=== PATIENT | female | born 1970 | race Caucasian/White ===

== ENCOUNTER 2017-05-11 07:10 | Day surgery (SDC) | payer BC ==
--- NOTE | 2017-05-04 09:19 | HP ---
PREOPERATIVE HISTORY AND PHYSICAL: DATE OF SURGERY/ADMISSION: 05/11/17 [facility] DATE OF OFFICE VISIT/ENCOUNTER: 05/03/17 ATTENDING SURGEON: Luz Hendrix MD. * (DICTATED BY COLBY RICHARD) PROCEDURE: Left thumb trigger finger release. CHIEF COMPLAINT: Left thumb triggering. HISTORY OF PRESENT ILLNESS: This is a 46-year-old female who reports symptoms of pain, triggering, and decreased ability to fully flex the thumb that has had been going on for approximately 2 months. She says that moving and bending the thumb is very painful. She says that oftentimes, she cannot flex her thumb and if she can, it gets stuck in a flexed position and she has to use her other hand to extend the thumb. 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 She tried some conservative treatment including oral anti-inflammatories and a thumb brace; however, neither were helpful in relieving her symptoms. She would like to proceed with surgical intervention at this time. PAST MEDICAL HISTORY: 1. Asthma. 2. Overactive bladder. 3. GERD. PAST SURGICAL HISTORY: 1. Tubal ligation. 2. Skin cancer removal from nose. MEDICATIONS: 1. Asmanex HFA 100 mcg/act 2 puffs twice daily. 2. Cetirizine HCL 10 mg daily p.r.n. 3. Citalopram hydrobromide 20 mg 1-1/2 tabs daily. 4. Meloxicam 7.5 mg daily. 5. Prevacid 30 mg daily. 6. ProAir HFA 108 (90 base) mcg/act 2 puffs every 4 to 6 hours p.r.n. 7. VESIcare 10 mg daily. ALLERGIES: No known drug allergies. FAMILY MEDICAL HISTORY: Cancer and heart disease. 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 She is a current smoker, she smokes approximately a half a pack a day and has done so for the past 30 years. She denies recreational drug use. She does admit to alcohol use on occasion. REVIEW OF SYSTEMS: General: Negative for fevers, chills, or night sweats. No known anesthesia problems. HEENT: Negative for headache, lightheadedness, or syncopal episodes. Integumentary: Negative for abrasions, lesions, or open wounds. Cardiothoracic: Negative for hypertension, chest pain, palpitations, or edema. Pulmonary: Positive for mild shortness of breath with exertion related to asthma. Negative for chronic cough or COPD. GI: Positive for GERD. Negative for nausea, vomiting, diarrhea, constipation. : Positive for overactive bladder. Negative for history of UTIs or kidney problems. Musculoskeletal: Positive for current complaint. Negative for chronic or intermittent back pain, or history of fractures. Neurological: Negative for paresthesias, numbness, history of seizures, stroke, or epilepsy. Endocrine: Negative for diabetes or thyroid issues. Hematologic: Negative for easy bruising, anemia, excessive bleeding, or history of DVT. Infectious Disease: Positive for history of MRSA approximately 4 years ago. Negative for hepatitis C or HIV. PHYSICAL EXAMINATION GENERAL: A well-developed, well-nourished 46-year-old female in no acute distress. VITAL SIGNS: Height 5 feet 4 inches, weight 170 pounds, pulse rate 76, blood pressure 122/82. HEENT: Normocephalic, atraumatic. Pupils are equal, round, and reactive to light and accommodation. Extraocular movements are intact. NECK: Supple. No palpable lymph nodes. Throat is clear. PULMONARY: Lungs are clear to auscultation bilaterally. No wheezes, rales, or rhonchi. CARDIOVASCULAR: Regular rate and rhythm. S1 and S2. No murmurs, rubs, or gallops. No edema. ABDOMEN: Positive bowel sounds, soft, nontender. NEUROLOGIC: Alert and oriented x3. Cranial nerves II through XII are intact. Sensation is intact to light touch. MUSCULOSKELETAL: On inspection of the left hand and thumb, she has a very tender palpable nodule in the area of the A1 divine. She has full extension of the thumb, but is unable to flex the thumb secondary to pain. Neurovascular function is intact. IMAGING STUDIES: X-rays of the left thumb show no sign of acute injury or other osseous abnormalities. IMPRESSION: Left thumb trigger thumb. PLAN: The patient is scheduled to undergo a left thumb trigger finger release with Dr. Hendrix on 05/11/17. She will return to the office 10 to 14 days postop for followup and suture removal. A prescription for Ultracet was e-scribed to the patient's pharmacy for postoperative pain management. COLBY RICHARD [id number]/[facility] #: [id number] [facility]
[~2017-05-11 07:10] MED LIST: Buffered Lidocaine 0.9% SYRIN* 5 ML/SYR SYRINGE INTRADERM ONE
[2017-05-11] MEDS ORDERED: fentaNYL* 50 MCG/ML 2 ML VIAL (100 MCG VIAL) ONE (08:03)
[2017-05-11] MEDS ORDERED: Midazolam* 1 MG/ML 2 ML VIAL (2 MG) ONE ×2 (08:03→08:29)
[2017-05-11] MEDS ORDERED: Lidocaine 1% INJ* 10 MG/ML 30 ML SDV ONE (08:19)
[2017-05-11] MEDS ORDERED: Famotidine IV* 10 MG/ML 2 ML (20 mg) ONE (08:24)
[2017-05-11] MEDS ORDERED: Ketorolac INJ* 30 MG/ML 1 ML VIAL ONE (08:30)
[2017-05-11] MEDS ORDERED: Lidocaine 2% PF * 5 ML VIAL ONE (08:30)
[2017-05-11] MEDS ORDERED: Propofol* 10 MG/ML 20 ML BTL IV PUSH ONE (08:30)
[2017-05-11] MEDS ORDERED: Acetaminophen TAB* 325 MG PO PRN (08:43)
[2017-05-11] MEDS ORDERED: Ondansetron INJ* 2 MG/ML VIAL IV PRN (08:43)
[2017-05-11] MEDS ORDERED: PROCHLORPERAZINE INJ 5 MG/ML 2 ML VIAL IV PRN (08:43)
[2017-05-11 09:13] VITALS: BP 108/77
--- NOTE | 2017-05-12 04:54 | OP ---
DATE OF OPERATION: 05/11/17 [facility] DATE OF : 70 SURGEON: Dr. Hendrix. ACCOUNTING CONSULTANT: COLBY Tay ANESTHESIOLOGIST: Dr. Mason ANESTHESIA: Local MAC. PRE-OP DIAGNOSIS: Left trigger thumb. POST-OP DIAGNOSIS: Left trigger thumb. OPERATIVE PROCEDURE: Remove left trigger thumb. INDICATIONS: Brunilda is a 46-year-old female with triggering and locking of her left thumb. She presents for trigger thumb release. ESTIMATED BLOOD LOSS: Zero. TOURNIQUET TIME: 10 minutes. DESCRIPTION OF PROCEDURE: The patient was brought to the operating room, was given a sedation anesthetic and a local infiltration of 10 cc of 1% plain lidocaine overlying the A1 divine of the left thumb. Skin of her left hand and forearm was prepped and draped in the usual sterile fashion. The hand and forearm were exsanguinated and the tourniquet elevated to 250 mmHg. A transverse incision was made centered over the A1 divine of the thumb, dissected bluntly through the subcutaneous tissue. The digital neurovascular bundles were located and they were retracted by the surgical garment inspector, Lelo Donohue. The A1 divine was incised longitudinally completely releasing the FPL tendon, which was in good condition. The wound was irrigated and the skin edges reapproximated with 4-0 nylon suture. The wound was dressed with Xeroform , 4x4, Webril, and an Mani wrap. The patient tolerated the procedure well and was brought to the recovery room in good condition. [id number]/[facility] #: [id number] MTDD
== END 2017-05-11 09:30 | disposition home or self-care (01) ==
LOC: OREAST 07:10
PROVIDERS: ATTEND Orthopaedic Surgery
DX: M65.312 Trigger thumb, left thumb (principal); J45.909 Unspecified asthma, uncomplicated; N32.81 Overactive bladder; K21.9 Gastro-esophageal reflux disease without esophagitis; Z85.828 Personal history of other malignant neoplasm of skin; F17.210 Nicotine dependence, cigarettes, uncomplicated
CPT/HCPCS: J1885; J2001; J2250; J2704; J3010

== ENCOUNTER 2017-06-19 06:29 | Day surgery (SDC) | payer BC ==
--- NOTE | 2017-06-18 13:19 | HP ---
PREOPERATIVE HISTORY AND PHYSICAL: DATE OF ADMISSION/SURGERY: 06/19/17 DATE OF OFFICE VISIT/ENCOUNTER: 06/14/17 ATTENDING SURGEON: Luz Hendrix MD * (DICTATED BY COLBY RICHARD) PROCEDURE: Right wrist carpal tunnel release. CHIEF COMPLAINT: Numbness and tingling in right hand. HISTORY OF PRESENT ILLNESS: This is a 47-year-old female, who complains of numbness and tingling in her right hand. She says all of her fingers are involved, that has been going on for several months. It awakens her at night. Symptoms are progressively getting worse. In the past, she has been diagnosed with carpal tunnel that at one point got better, but now it has returned and it is worse than it had been before. She is interested in pursuing surgical intervention at this time in the form of a right wrist carpal tunnel release. PAST MEDICAL HISTORY: 1. Asthma. 2. Overactive bladder. 3. GERD. 4. Current ear infection. PAST SURGICAL HISTORY: 1. Tubal ligation. 2. Skin cancer removal from nose. 3. Left thumb trigger finger release. CURRENT MEDICATIONS: 1. Augmentin 875/125 mg twice a day. 2. Cetirizine HCl 10 mg daily. 3. Citalopram hydrobromide 20 mg 1-1/2 tabs daily. 4. Meloxicam 7.5 mg daily. 5. Prevacid 30 mg daily. 6. ProAir HFA 108 (90 base) mcg/act 2 puffs every 4 to 6 hours p.r.n. 7. VESIcare 10 mg daily. 8. Valacyclovir HCl 1 g q.8 hours for 1 week. ALLERGIES: No known drug allergies. FAMILY HISTORY: Cancer and heart disease. SOCIAL HISTORY: The patient is not currently working. She has recently been laid off by [employer]. She is a current smoker, she smokes approximately a half a pack a day and has done so for the past 30 years. She denies recreational drug use and does drink alcohol on occasion. REVIEW OF SYSTEMS: General: Negative for fevers, chills, or night sweats. No known anesthesia problems. HEENT: Positive for current ear infection. Negative for headache, lightheadedness, or syncopal episodes. Integumentary: Negative for abrasions, lesions, or open wounds. Cardiothoracic: Negative for hypertension, chest pain, palpitations, or edema. Pulmonary: Positive for mild shortness of breath with exertion related to asthma. Negative for chronic cough or COPD. GI: Positive for GERD. Negative for nausea, vomiting, diarrhea , constipation. : Positive for overactive bladder. Negative for history of UTIs or kidney problems. Musculoskeletal: Positive for current complaint. Negative for chronic or intermittent back pain or history of fractures. Neurological: Negative for history of seizure, stroke, or epilepsy. Endocrine: Negative for diabetes or thyroid issues. Hematologic: Negative for easy bruising , anemia, excessive bleeding, or history of DVT. Infectious Disease: Positive for history of MRSA approximately 4 years ago. Negative for hepatitis C or HIV. PHYSICAL EXAMINATION GENERAL: Well-developed, well-nourished, 47-year-old female, in no acute distress. VITAL SIGNS: Height 5 feet 4-1/2 inches, weight 154 pounds. Blood pressure 118 /64, pulse rate 76. HEENT: Normocephalic, atraumatic. Pupils are equal, round, and reactive to light and accommodation. Extraocular movements are intact. Throat is clear. NECK: Supple. No palpable lymph nodes. PULMONARY: Lungs are clear to auscultation bilaterally. No wheezes, rales, or rhonchi. CARDIOVASCULAR: Regular rate and rhythm. S1, S2. No murmurs, rubs, or gallops. No edema. ABDOMEN: Positive bowel sounds, soft, nontender. MUSCULOSKELETAL: On exam of her right hand, there is no thenar wasting, but she does have weakness with thumb abduction. Positive median nerve compression test. Good range of motion of her fingers in flexion and extension. Sensation is intact to light touch. NEUROLOGIC: Alert and oriented x3. Cranial nerves II through XII are intact. Sensation is intact to light touch. IMPRESSION: Right carpal tunnel syndrome. PLAN: The patient is scheduled to undergo a right wrist carpal tunnel release with Dr. Hendrix on 06/19/17. She will return to the office in 10 to 14 days for postop followup and suture removal. A prescription for Ultracet was e-scribed to the patient's pharmacy for postoperative pain management. COLBY RICHARD [id number]/[facility] #: [id number] [facility]PITAL[facility]y
[~2017-06-19 06:29] MED LIST changes: +Dexamethasone IV* 4 MG/ML 1 ML (4 MG) IV SLOW PU ONE; +Famotidine IV* 10 MG/ML 2 ML (20 mg) IV ONE
[2017-06-19] MEDS ORDERED: Buffered Lidocaine 0.9% SYRIN* 5 ML/SYR SYRINGE ONE (06:35)
[2017-06-19] MEDS ORDERED: Dexamethasone IV* 4 MG/ML 1 ML (4 MG) ONE (06:35)
[2017-06-19] MEDS ORDERED: Famotidine IV* 10 MG/ML 2 ML (20 mg) ONE (06:35)
[2017-06-19] MEDS ORDERED: Lidocaine 1% INJ* 10 MG/ML 30 ML SDV ONE (07:09)
[2017-06-19] MEDS ORDERED: Lidocaine 2% PF * 5 ML VIAL ONE (07:24)
[2017-06-19] MEDS ORDERED: Midazolam* 1 MG/ML 2 ML VIAL (2 MG) ONE (07:24)
[2017-06-19] MEDS ORDERED: Propofol* 10 MG/ML 20 ML BTL IV PUSH ONE (07:24)
[2017-06-19] MEDS ORDERED: fentaNYL* 50 MCG/ML 2 ML VIAL (100 MCG VIAL) ONE (07:24)
[2017-06-19] MEDS ORDERED: PROCHLORPERAZINE INJ 5 MG/ML 2 ML VIAL IV PRN (07:26)
[2017-06-19] MEDS ORDERED: fentaNYL* 50 MCG/ML 2 ML VIAL (100 MCG VIAL) IV PRN (07:26)
[2017-06-19] MEDS ORDERED: Ketorolac INJ* 30 MG/ML 1 ML VIAL IV PRN (07:26)
[2017-06-19] MEDS ORDERED: oxyCODONE/Acetamin 5/325 MG* TAB PO PRN (07:26)
[2017-06-19] MEDS ORDERED: HYDROcodone/ACETAMIN 5-325 MG* 1 TAB PO PRN (07:26)
[2017-06-19 08:11] VITALS: BP 109/62
--- NOTE | 2017-06-19 22:25 | OP ---
DATE OF OPERATION: 06/19/17 [facility] DATE OF : 70 SURGEON: Luz Hendrix MD FINISH INSPECTOR: COLBY Tay ANESTHESIOLOGIST: Gisselle Butler MD ANESTHESIA: Local MAC. PRE-OP DIAGNOSIS: Right carpal tunnel syndrome. POST-OP DIAGNOSIS: Right carpal tunnel syndrome. OPERATIVE PROCEDURE: Right carpal tunnel release. ESTIMATED BLOOD LOSS: Zero. TOURNIQUET TIME: 5 minutes. INDICATIONS: Brunilda is a 47-year-old female with numbness and tingling in the median nerve distribution of her right hand. She presents for right carpal tunnel release. DESCRIPTION OF PROCEDURE: The patient was brought to the operating room, was given a sedation anesthetic, and a local infiltration of 10 cc of 1% plain lidocaine in the palm of her right hand. The skin of her right hand and forearm was prepped and draped in the usual sterile fashion. The hand and forearm were exsanguinated and the tourniquet elevated to 250 mmHg. A longitudinal incision was made in the palm in line with the ring finger. We dissected through the subcutaneous tissue down to the transverse carpal ligament. The ligament was divided sharply with a knife and then more proximally with the scissors. The nerve was dissected free from the surrounding tissue and there was an area of moderate compression at the mid portion of the ligament. The wound was irrigated and the skin edges reapproximated with 4-0 nylon suture. The wound was dressed with Xeroform, 4x4 , Webril, and an Mani wrap. The patient tolerated the procedure well and was brought to the recovery room in good condition. [id number]/[facility] #: [id number] MTDD
== END 2017-06-19 08:32 | disposition home or self-care (01) ==
LOC: OREAST 06:29
PROVIDERS: ATTEND Orthopaedic Surgery
DX: G56.01 Carpal tunnel syndrome, right upper limb (principal); F17.210 Nicotine dependence, cigarettes, uncomplicated; J45.909 Unspecified asthma, uncomplicated
CPT/HCPCS: J1100; J2001; J2250; J2704; J3010

== ENCOUNTER 2017-08-14 06:54 | Day surgery (SDC) | payer BC ==
[~2017-08-14 06:54] MED LIST changes: -Dexamethasone IV* 4 MG/ML 1 ML (4 MG) IV SLOW PU ONE; -Famotidine IV* 10 MG/ML 2 ML (20 mg) IV ONE
[2017-08-14] MEDS ORDERED: Lidocaine 1% INJ* 10 MG/ML 30 ML SDV ONE (08:08)
[2017-08-14] MEDS ORDERED: Lidocaine 2% PF * 5 ML VIAL ONE (08:15)
[2017-08-14] MEDS ORDERED: fentaNYL* 50 MCG/ML 2 ML VIAL (100 MCG VIAL) ONE (08:15)
[2017-08-14] MEDS ORDERED: Propofol* 10 MG/ML 20 ML BTL IV PUSH ONE (08:15)
[2017-08-14 08:48] VITALS: BP 110/66
--- NOTE | 2017-08-15 01:08 | OP ---
DATE OF OPERATION: 08/14/17 [facility] DATE OF : 70 SURGEON: Luz Hendrix MD EGG TESTER: COLBY Tay ANESTHESIA: Local MAC. PRE-OP DIAGNOSIS: Left carpal tunnel syndrome. POST-OP DIAGNOSIS: Left carpal tunnel syndrome. OPERATIVE PROCEDURE: Left carpal tunnel release. INDICATIONS: Brunilda is a 47-year-old female with numbness and tingling in the median nerve distribution of her left hand. She presents for left carpal tunnel release. ESTIMATED BLOOD LOSS: Zero. TOURNIQUET TIME: 5 minutes. DESCRIPTION OF PROCEDURE: The patient was brought to the operating room, was given a sedation anesthetic, and a local infiltration of 10 cc of 1% plain lidocaine in the palm of her left hand. The skin of her left hand and forearm was prepped and draped in the usual sterile fashion. The hand and forearm were exsanguinated and the tourniquet elevated to 250 mmHg. A longitudinal incision was made in the palm in line with the ring finger. We dissected through the subcutaneous tissue down to the transverse carpal ligament. The ligament was divided sharply with a knife and then more proximally with the scissors. The nerve was dissected free from the surrounding tissue and there was an area of moderate compression at the mid portion of the ligament. The wound was irrigated and the skin edges reapproximated with 4-0 nylon suture. The wound was dressed with Xeroform, 4x4's, Webril, and an Mani wrap. The patient tolerated the procedure well and was brought to the recovery room in good condition. [id number]/[facility] #: [id number] SWATI
== END 2017-08-14 09:10 | disposition home or self-care (01) ==
LOC: OREAST 06:54
PROVIDERS: ATTEND Orthopaedic Surgery
DX: G56.02 Carpal tunnel syndrome, left upper limb (principal); J45.909 Unspecified asthma, uncomplicated; K21.9 Gastro-esophageal reflux disease without esophagitis; N32.81 Overactive bladder; Z85.828 Personal history of other malignant neoplasm of skin; F17.210 Nicotine dependence, cigarettes, uncomplicated
CPT/HCPCS: J2704; J3010

== ENCOUNTER 2017-10-09 09:08 | Day surgery (SDC) | payer BC ==
--- NOTE | 2017-10-04 12:57 | HP ---
PREOPERATIVE HISTORY AND PHYSICAL: DATE OF SURGERY/ADMISSION: 10/09/17. DATE OF OFFICE VISIT/ENCOUNTER: 10/03/17. ATTENDING SURGEON: Luz Hendrix MD.* (DICTATED BY COLBY RICHARD) PROCEDURE: Right thumb trigger finger release. CHIEF COMPLAINT: Right thumb triggering. HISTORY OF PRESENT ILLNESS: This is a 47-year-old female who reports symptoms of pain, triggering, and decreased ability to fully flex her right thumb. This has been ongoing for several months now. She states moving and bending the thumb is very painful. She states oftentimes she cannot fully flex her thumb and if she can, it gets stuck in a flexed position and she has to use the other hand to extend this thumb. It is very painful. She denies injury. 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 She unfortunately has been laid off from that job, but the trigger finger persists. She has had some conservative treatment including oral antiinflammatories and a thumb brace. However, neither was helpful in relieving her symptoms. She is interested in proceeding with surgical intervention at this time. She recently underwent a left thumb trigger finger release and has done very well with that. PAST MEDICAL HISTORY: 1. Asthma. 2. Overactive bladder. 3. GERD. PAST SURGICAL HISTORY: 1. Tubal ligation. 2. Skin cancer removal from nose. 3. Left carpal tunnel release. 4. Left thumb trigger finger release. CURRENT MEDICATIONS: 1. Chantix as directed. 2. Citalopram hydrobromide 40 mg daily. 3. Prevacid 30 mg daily. 4. Pro-Air HFA 108/90 base micrograms/ACT 2 puffs q. 4 to 6 hours p.r.n. 5. VESIcare 10 mg daily. ALLERGIES: No known drug allergies. FAMILY MEDICAL HISTORY: Cancer and heart disease. SOCIAL HISTORY: Patient is currently laid off. 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 She is a current smoker. She smokes approximately half a pack a day and has been so for the past 30 years. She denies recreational drug use. She does drink alcohol on occasions. REVIEW OF SYSTEMS: General: Negative for fevers, chills, or night sweats. No known anesthesia problems. HEENT: Negative for headache, lightheadedness or syncopal episodes. Integumentary: Negative for abrasions, lesions or open wounds. Cardiothoracic: Negative for hypertension, chest pain, palpitations or edema. Pulmonary: Positive for mild shortness of breath with exertion related to asthma. Negative for chronic cough or COPD. GI: Positive for GERD. Negative for nausea, vomiting, diarrhea or constipation. : Positive for overactive bladder. Negative for history of UTI or kidney problems. Musculoskeletal: Positive for current complaint. Negative for chronic or intermittent back pain or history of fractures. Neurologic: Negative for paresthesia or numbness, history of seizure, stroke or epilepsy. Endocrine: Negative for diabetes or thyroid issues. Hematologic: Negative for easy bruising, anemia, excessive bleeding. No history of DVT. Infectious Disease: Positive for history of MRSA approximately 4 years ago, negative for hepatitis C or HIV. PHYSICAL EXAMINATION GENERAL: Well-developed, well-nourished 47-year-old female in no acute distress. VITAL SIGNS: Height 5 feet 4-1/4 inches, weight 163 pounds, pulse rate 76, blood pressure 110/62. HEENT: Normocephalic, atraumatic. Pupils are equal, round and reactive to light and accommodation. Extraocular movements are intact. Throat is clear. NECK: Supple. No palpable lymph nodes. LUNGS: Clear to auscultation bilaterally. No wheezes, rales or rhonchi. HEART: Regular rate and rhythm. S1, S2. No murmurs, rubs or gallops. No edema. ABDOMEN: Positive bowel sounds, soft, nontender. NEUROLOGIC: Alert and oriented x3. Cranial nerves II through XII are intact. Sensation is intact to light touch. MUSCULOSKELETAL: On inspection of her right hand and thumb, she has tenderness to palpation at the A1 divine. She has full extension of the thumb, but she is unable to flex this thumb secondary to pain. Neurovascular function is intact. IMPRESSION: Right thumb trigger thumb. PLAN: Patient is scheduled to undergo a right thumb trigger finger release with Dr. Hendrix on 10/09/17. She will return to the office 10 days postop for follow up and suture removal. A prescription for Ultracet was e-scribed to the patient's pharmacy for postoperative pain management. COLBY RICHARD [id number]/[facility] #: [id number] SWATI
[~2017-10-09 09:08] MED LIST changes: +Famotidine IV* 10 MG/ML 2 ML (20 mg) IV ONE; +Lidocaine 1% INJ* 10 MG/ML 30 ML SDV ONE; +Naloxone* 0.4 MG/ML 1 ML VIAL IV PRN; +Ondansetron INJ* 2 MG/ML VIAL IV PRN; +fentaNYL* 50 MCG/ML 2 ML VIAL (100 MCG VIAL) IV PRN; +oxyCODONE/Acetamin 5/325 MG* TAB PO PRN
[2017-10-09] MEDS ORDERED: Famotidine IV* 10 MG/ML 2 ML (20 mg) ONE (09:14)
[2017-10-09] MEDS ORDERED: Lidocaine 2% PF * 5 ML VIAL ONE (09:58)
[2017-10-09] MEDS ORDERED: Ondansetron INJ* 2 MG/ML VIAL ONE (09:58)
[2017-10-09] MEDS ORDERED: fentaNYL* 50 MCG/ML 2 ML VIAL (100 MCG VIAL) ONE (09:58)
[2017-10-09] MEDS ORDERED: Propofol* 10 MG/ML 20 ML BTL IV PUSH ONE (09:58)
[2017-10-09] MEDS ORDERED: Midazolam* 1 MG/ML 2 ML VIAL (2 MG) ONE (09:58)
[2017-10-09] MEDS ORDERED: Dexamethasone IV* 4 MG/ML 1 ML (4 MG) ONE (09:58)
[2017-10-09] MEDS ORDERED: Ketorolac INJ* 30 MG/ML 1 ML VIAL ONE (09:58)
[2017-10-09 11:22] VITALS: BP 124/76
--- NOTE | 2017-10-10 00:53 | OP ---
DATE OF OPERATION: 10/09/17 [facility] DATE OF : 70 SURGEON: Luz Hendrix MD ANIMAL ANATOMY TEACHER: COLBY Acevedo ANESTHESIOLOGIST: Maikel Pruett MD ANESTHESIA: Local MAC. PRE-OP DIAGNOSIS: Right trigger thumb. POST-OP DIAGNOSIS: Right trigger thumb. OPERATIVE PROCEDURE: Right trigger thumb release. ESTIMATED BLOOD LOSS: Zero. TOURNIQUET TIME: About 5 minutes. INDICATIONS FOR PROCEDURE: Brunilda is a 47-year-old female with clicking and locking of her right thumb. She has failed conservative treatment and presents for trigger thumb release. DESCRIPTION OF PROCEDURE: The patient was brought to the operating room, was given a sedation anesthetic and a digital block with 10 cc of 1% plain lidocaine. Skin of her right hand and forearm was prepped and draped in the usual sterile fashion. The hand and forearm were exsanguinated and tourniquet elevated to 250 mmHg. A transverse incision was made, centered over the A1 divine of the right thumb. We dissected bluntly through the subcutaneous tissue. The digital neurovascular bundles were retracted by the operating room surgical technician, Kimberley Beck. The A1 divine was incised longitudinally, completely releasing the flexor tendon, which was in good condition. The wound was irrigated and the skin edges reapproximated with 4-0 nylon suture. The wound was dressed with Xeroform, 4x4, Webril, and an Mani wrap. The patient tolerated the procedure well and was brought to the recovery room in good condition. [id number]/[facility] #: [id number] MTDD
== END 2017-10-09 11:40 | disposition home or self-care (01) ==
LOC: OREAST 09:08
PROVIDERS: ATTEND Orthopaedic Surgery
DX: M65.311 Trigger thumb, right thumb (principal); J45.909 Unspecified asthma, uncomplicated; K21.9 Gastro-esophageal reflux disease without esophagitis; N32.81 Overactive bladder; Z72.0 Tobacco use; F41.9 Anxiety disorder, unspecified
CPT/HCPCS: J1100; J1885; J2250; J2405; J2704; J3010

== ENCOUNTER 2017-10-21 12:10 | Emergency (ER) | payer BC ==
--- OUTSIDE RECORDS SUMMARY | 2017-10-21 12:30 | XMS REPORT ---
:1970 External Reference #:[id number] Author Organization [facility] [employer] Address [address] [address] Phone [phone] Care Team Providers Name Role Phone Ethan Morris MD Primary Care Physician Unavailable Payers Type Date Identification Numbers Payment Provider Subscriber Commercial Effective: Policy Number: [id number] BS Facets Brina Rankin 2015 PayID: [id number] [address] [address] APURVA Joseph [address] Medigap Part B Effective: 2014 Policy Number: BS Facets Brina Rankin [id number] Expires: 2015 PayID: [id number] [address] [address] APURVA Joseph [address] Medigap Part B Effective: 2010 Policy Number: Local 589 InsDominick Rankin [id number] Fund Expires: 2011 [address] [place] [address] Workers Compensation Onset: 2015 Policy Number: Armando Rankin [id number] PayID: [id number] [address] [address] [place] [address] Problems Date Description Provider Status Onset: 10/08/2017 Human leukocyte antigen B27 test Jeffery Coates positive KWADWO Sanchez Onset: 09/05/2011 Tobacco user Mary Velasco M.D. Active Onset: 02/28/2017 Cough variant asthma Jeffery Coates M.D.FACErin Onset: 02/28/2017 Increased frequency of urination Jeffery Coates M.D., FACP Onset: 02/28/2017 Endogenous depression Jeffery Coates M.D.,FACP Onset: 02/28/2017 Gastroesophageal reflux disease Jeffery Coates M.D.,FACP Onset: 06/14/2017 Carpal tunnel syndrome of right Luz Hendrix M.D. 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 Daily Caffeine Consumes on average 2 cups of regular coffee per day Exercise Type/Frequency Does not exercise Currently Active Patient is currently sexually active Sexual Hx text LMP: 08/22/15 Allergies, Adverse Reactions, Alerts Date Description Reaction Status Severity Comments 08/22/2011 NKDA active Medications Medication Date Status Form Strength Qnty SIG Indications Ordering Provider Hydrocodone-Aceta 10/03/ Active Tablets 5-325mg 15tab 1 tab by Luz walker 2017 s mouth Hendrix, every 4- 6 M.D. hours as needed pain Chantix Starting 08/20/ Active Tablets 0.5mg X 55tab as Ethan Month 2016 11 & s directed DDominick Morris, 1 mg X 42 M.D.,FACP Citalopram 08/20/ Active Tablets 40mg 90tab 1 by mouth N94.3 Ethan Hydrobromide 2017 s every day Shari Morris M.D.,FACP Valacyclovir HCL 06/12/ Active Tablets 1gm 21tab by mouth Ethan 2017 s every 8 D. Alexandra, hours for M.D.,FACP 1 week Proair HFA 08/03/ Active Aerosol 108(90Bas 1unit 2 puffs R06.02 Parth 2014 e) s every 4-6 Italian, [employer] mcg/Act hours as needed Prevacid / Active Capsules 30mg 1 by mouth Unknown 0000 DR every day Vesicare / Active Tablets 10mg 1 by mouth Unknown 0000 every day Hydrocodone-Aceta 08/14/ Hx Tablets 5-325mg 15tab 1 tab by Luz walker 2016 - s mouth Hendrix, 08/20/ every 4- 6 M.D. 2017 hours as needed pain Ultracet 08/13/ Hx Tablets 37.5-325m 15tab 1 tab by Luz 2017 - g s mouth Hendrix, 08/20/ every 4-6 M.D. 2017 hours as needed pain Hydrocodone-Aceta 06/19/ Hx Tablets 5-325mg 15tab 1 tab by Luz walker 2016 mouth Hendrix, 07/18/ every 4- 6 M.D. 2017 hours as needed pain Tramadol 06/14/ Hx Tablets 37.5-325m 20tab 1 tab by Luz Nieves/Mani 2016 - g s mouth Hendrix, taminophen 07/18/ every 4-6 M.D. 2017 hours as needed pain Augmentin 06/12/ Hx Tablets 875-125mg 20tab by mouth Ethan 2016 - s twice a D. Madison, 06/22/ day M.D.,FACP 2017 Tramadol 05/03/ Hx Tablets 37.5-325m 30tab 1 tab by Ethan Nieves/Mani 2016 - g s mouth D. Madison, taminophen 07/18/ every 4-6 M.D.,FACP 2017 hours as needed pain Meloxicam 04/12/ Hx Tablets 7.5mg 30tab take 1 Luz Martin - pill a day Hendrix, 06/12/ by mouth M.D. 2016 Cetirizine HCL 02/28/ Hx Tablets 10mg 30tab 1 by mouth Ethan 2016 - s every day D. Madison, 08/20/ as needed M.D.,FACP 2017 Asmanex HFA 02/28/ Hx Aerosol 100mcg/Ac 39gm 2 puff Ethan 2016 - t twice a D. Madison, 06/12/ day M.D.,FACP 2016 (Samples) Amoxicillin/Clavu 09/20/ Hx Tablets 875-125mg 20tab 1 tablet J01.90 Parth lanate Potassium 2016 - s by mouth VINEET Anderson 09/30/ twice a 2017 day x's 10 days Citalopram 02/20/ Hx Tablets 20mg 45tab 1 1/2 tab N94.3 Ethan Hydrobromide 2015 - s by mouth Shari Morris, 08/20/ every day M.D.,FACP 2017 Chantix Starting 02/20/ Hx Tablets 0.5mg X 1tabs as Z71.6 Parth Forde Vinh 2015 - & directed VINEET Anderson 09/20/ 1 mg X 42 continue 2017 for 12 weeks Azithromycin 10/05/ Hx Tablets 250mg 6tabs 2 tabs by J01.90 Parth 2016 - mouth on VINEET Anderson 10/10/ day 1; 1 2015 tab by mouth every day on days 2-5 Citalopram 08/31/ Hx Tablets 20mg 30tab 1 tab by N94.3 Parth Modibromide 2014 - mouth VINEET Anderson 02/20/ every day 2016 Nicotine 08/03/ Hx Patches 14mg/24HR 30uni apply 1 F17.210 Petar 2014 - 24HR ts patch per Brenner, 10/05/ day Going M.D. 2015 back next week Naproxen 07/22/ Hx Tablets 375mg 45tab 1 tablet M54.2 Petar 2014 - s by mouth Brenner, 10/05/ twicw a M.D. 2015 day with foods Cyclobenzaprine 07/22/ Hx Tablets 5mg 60tab 1 tablet M54.2 Petar HCL 2014 - s by mouth Brenner, 10/05/ three M.D. 2016 times a day as needed Wellbutrin 08/22/ Hx Tablets 100mg 60tab 1 tab 305.1 Mray 2010 - s daily Velasco, 07/21/ M.D. 2015 Proair HFA 08/22/ Hx Aerosol 108(90Bas 1unit 2 puffs 786.05 Mary 2010 - e) mcg/ac s every 4-6 Velasco, 08/03/ hrs as M.D. 2014 needed Ibuprofen 00// Hx Tablets 200mg 90tab 2 tablet Unknown 0000 - s prn for 07/22/ headaches 2015 Immunizations CPT Code Status Date Vaccine Lot # [id number] Given 08/20/2017 Pneumonia Vaccine [id number] Given 08/20/2017 Influenza Virus Vaccine, Quadrivalent, Split, [id number] Preservative Free [id number] Given 08/24/2015 Pneumococcal Conjugate Vaccine 13 Valent For [id number] Intramuscular Use 01919 Given 08/03/2015 Influenza Virus Vaccine, Quadrivalent, Split, [id number] Preservative Free Vital Signs Date Vital Result Comment 10/18/2017 Height 64.25 inches 5'4.25" Weight 163.00 lb Heart Rate 74 /min BP Systolic 113 mmHg BP Diastolic 77 mmHg Body Temperature 97.0 F BMI (Body Mass Index) 27.8 kg/m2 10/03/2017 Heart Rate 75 /min BP Systolic Sitting 112 mmHg BP Diastolic Sitting 78 mmHg Body Temperature 98.1 F 09/12/2017 Height 64.25 inches 5'4.25" Weight 163.00 lb Heart Rate 76 /min Respiratory Rate 14 /min Body Temperature 98.3 F Pain Level 2 BMI (Body Mass Index) 27.8 kg/m2 08/23/2017 Height 64.25 inches 5'4.25" Weight 163.00 lb BP Systolic 110 mmHg BP Diastolic 62 mmHg Body Temperature 96.7 F Pain Level 0 BMI (Body Mass Index) 27.8 kg/m2 08/20/2017 Height 64.25 inches 5'4.25" Weight 163.00 lb Heart Rate 73 /min BP Systolic Sitting 118 mmHg BP Diastolic Sitting 72 mmHg Body Temperature 98.4 F O2 % BldC Oximetry 97 % BMI (Body Mass Index) 27.8 kg/m2 08/01/2017 Height 64.5 inches 5'4.50" Weight 154.00 lb Heart Rate 70 /min BP Systolic 119 mmHg BP Diastolic 78 mmHg Body Temperature 97.7 F BMI (Body Mass Index) 26.0 kg/m2 07/02/2017 Height 64.5 inches 5'4.50" Weight 154.00 lb Heart Rate 76 /min BP Systolic 118 mmHg BP Diastolic 72 mmHg Body Temperature 96.9 F Pain Level 5 BMI (Body Mass Index) 26.0 kg/m2 06/20/2017 Height 64.5 inches 5'4.50" Weight 154.00 lb Body Temperature 97.4 F BMI (Body Mass Index) 26.0 kg/m2 06/14/2017 Height 64.5 inches 5'4.50" Weight 154.00 lb BP Systolic 118 mmHg BP Diastolic 64 mmHg Respiratory Rate 18 /min Pain Level 0 BMI (Body Mass Index) 26.0 kg/m2 06/12/2017 Weight 155.00 lb Heart Rate 68 /min BP Systolic Sitting 114 mmHg BP Diastolic Sitting 70 mmHg Body Temperature 98.3 F O2 % BldC Oximetry 98 % 05/22/2017 Height 64.5 inches 5'4.50" Weight 154.00 lb Heart Rate 76 /min BP Systolic 121 mmHg BP Diastolic 80 mmHg Body Temperature 96.7 F Pain Level 9 BMI (Body Mass Index) 26.0 kg/m2 05/03/2017 Height 64 inches 5'4" Weight 170.00 lb Heart Rate 76 /min BP Systolic 122 mmHg BP Diastolic 82 mmHg Respiratory Rate 17 /min Body Temperature 98.1 F Pain Level 4 BMI (Body Mass Index) 29.2 kg/m2 04/12/2017 Height 64 inches 5'4" Weight 170.00 lb Heart Rate 78 /min BP Systolic 130 mmHg BP Diastolic 72 mmHg Respiratory Rate 16 /min Body Temperature 97.6 F Pain Level 7 BMI (Body Mass Index) 29.2 kg/m2 02/28/2017 Weight 158.12 lb Heart Rate 69 /min BP Systolic 128 mmHg BP Diastolic 64 mmHg Body Temperature 98.4 F O2 % BldC Oximetry 99 % 09/20/2016 Weight 171.38 lb Heart Rate 80 /min BP Systolic Sitting 120 mmHg BP Diastolic Sitting 74 mmHg Body Temperature 99.0 F O2 % BldC Oximetry 98 % 02/21/2016 Height 65 inches 5'5" Weight 160.00 lb Heart Rate 78 /min BP Systolic Sitting 104 mmHg BP Diastolic Sitting 60 mmHg Body Temperature 98.2 F O2 % BldC Oximetry 98 % BMI (Body Mass Index) 26.6 kg/m2 10/25/2015 Height 65 inches 5'5" Weight 171.25 lb Heart Rate 92 /min BP Systolic Sitting 110 mmHg BP Diastolic Sitting 60 mmHg Body Temperature 97.7 F O2 % BldC Oximetry 94 % BMI (Body Mass Index) 28.5 kg/m2 10/05/2015 Height 65 inches 5'5" Weight 176.00 lb Heart Rate 98 /min BP Systolic Sitting 136 mmHg BP Diastolic Sitting 82 mmHg Body Temperature 98.7 F O2 % BldC Oximetry 96 % BMI (Body Mass Index) 29.3 kg/m2 09/21/2015 Height 65 inches 5'5" Weight 176.38 lb Heart Rate 79 /min BP Systolic Sitting 126 mmHg BP Diastolic Sitting 72 mmHg Body Temperature 98.0 F O2 % BldC Oximetry 97 % BMI (Body Mass Index) 29.3 kg/m2 08/31/2015 Height 65 inches 5'5" Weight 177.25 lb Heart Rate 76 /min BP Systolic Sitting 102 mmHg BP Diastolic Sitting 62 mmHg Body Temperature 97.6 F O2 % BldC Oximetry 98 % BMI (Body Mass Index) 29.5 kg/m2 08/24/2015 Height 65 inches 5'5" Weight 180.00 lb Heart Rate 78 /min BP Systolic Sitting 112 mmHg BP Diastolic Sitting 70 mmHg Body Temperature 98.4 F O2 % BldC Oximetry 98 % BMI (Body Mass Index) 30.0 kg/m2 08/23/2015 Height 65 inches 5'5" Weight 180.00 lb Heart Rate 78 /min BP Systolic Sitting 114 mmHg BP Diastolic Sitting 78 mmHg O2 % BldC Oximetry 98 % BMI (Body Mass Index) 30.0 kg/m2 08/03/2015 Height 65 inches 5'5" Weight 179.00 lb Heart Rate 77 /min BP Systolic Sitting 112 mmHg BP Diastolic Sitting 70 mmHg Body Temperature 98.2 F O2 % BldC Oximetry 96 % BMI (Body Mass Index) 29.8 kg/m2 07/22/2015 Height 65 inches 5'5" Weight 184.00 lb Heart Rate 86 /min BP Systolic Sitting 120 mmHg BP Diastolic Sitting 62 mmHg Body Temperature 98.6 F O2 % BldC Oximetry 98 % BMI (Body Mass Index) 30.6 kg/m2 09/05/2011 Height 65 inches 5'5" Weight 174.00 lb Heart Rate 68 /min BP Systolic Sitting 120 mmHg BP Diastolic Sitting 75 mmHg BMI (Body Mass Index) 29.0 kg/m2 08/22/2011 Height 65 inches 5'5" Weight 170.00 lb Heart Rate 72 /min BP Systolic Sitting 134 mmHg BP Diastolic Sitting 76 mmHg BMI (Body Mass Index) 28.3 kg/m2 Results Test Date Test Result H/L Range Note Lipid Profile (Trig/Chol/HDL) 09/03/2017 Triglycerides 66 mg/dL 1 Cholesterol 203 mg/dL 2 HDL Cholesterol 49.8 mg/dL 3 LDL Cholesterol 140 mg/dL 4 Laboratory test finding 09/03/2017 Glucose 90 mg/dL 70-100 5 Hla B27 09/03/2017 Hla B27 Positive 6 Hla B27 Interp See Comment 7 Laboratory test finding 09/03/2017 Vitamin B12 267 pg/mL 180-914 8 HIV 1/2 AB Evaluation 09/03/2017 HIV 1 2 Antibody Nonreactive Nonreactive 9 Basic Metabolic Panel 11/17/2015 Sodium 139 mmol/L 133-145 Potassium 4.4 mmol/L 3.5-5.0 Chloride 104 mmol/L 101-111 Co2 Carbon Dioxide 29 mmol/L 22-32 Anion Gap 6 mmol/L 2-11 Glucose 74 mg/dL 70-100 Blood Urea Nitrogen 10 mg/dL 6-24 Creatinine 0.74 mg/dL 0.51-0.95 BUN/Creatinine Ratio 13.5 8-20 Calcium 9.3 mg/dL 8.6-10.3 Egfr Non- 84.9 >60 Egfr 109.1 >60 10 Laboratory test finding 10/27/2015 (HCG) Urine Negative Negative 11 Laboratory test finding 09/21/2015 HCG Qualitative Negative Negative CBC Auto Diff 09/21/2015 White Blood Count 9.6 10^3/uL 3.5-10.8 Red Blood Count 4.67 10^6/uL 4.0-5.4 Hemoglobin 13.4 g/dL 12.0-16.0 Hematocrit 41 % 35-47 Mean Corpuscular Volume 87 fL 80-97 Mean Corpuscular Hemoglobin 29 pg 27-31 Mean Corpuscular HGB Conc 33 g/dL 31-36 Red Cell Distribution Width 13 % 10.5-15 Platelet Count 390 10^3/uL 150-450 Mean Platelet Volume 8 um3 7.4-10.4 Abs Neutrophils 5.1 10^3/uL 1.5-7.7 Abs Lymphocytes 3.7 10^3/uL 1.0-4.8 Abs Monocytes 0.7 10^3/uL 0-0.8 Abs Eosinophils 0.1 10^3/uL 0-0.6 Abs Basophils 0.1 10^3/uL 0-0.2 Abs Nucleated RBC 0 10^3/uL Granulocyte % 53.1 % 38-83 Lymphocyte % 38.3 % 25-47 Monocyte % 6.8 % 1-9 Eosinophil % 1.2 % 0-6 Basophil % 0.6 % 0-2 Nucleated Red Blood Cells % 0 Basic Metabolic Panel 09/21/2015 Sodium 137 mmol/L 133-145 Potassium 4.0 mmol/L 3.5-5.0 Chloride 102 mmol/L 101-111 Co2 Carbon Dioxide 27 mmol/L 22-32 Anion Gap 8 mmol/L 2-11 Glucose 85 mg/dL 70-100 Blood Urea Nitrogen 14 mg/dL 6-24 Creatinine 1.07 mg/dL High 0.51-0.95 BUN/Creatinine Ratio 13.1 8-20 Calcium 9.4 mg/dL 8.6-10.3 Egfr Non- 55.5 >60 Egfr 71.3 >60 12 Ua Routine 09/21/2015 Ua Specific [place] 1.020 Ua PH 8 Ua Color yellow Ua Appera cloudy Ua WBC neg Ua Protein neg Ua Glucose neg Ua Ketones neg Ua Bilirubin neg Ua Urobilinogen normal Ua Nitrite neg Ua Occult Blood neg Syphilis Screen 09/01/2015 Pediatric/Maternal NO Syphilis IgG Nonreactive Nonreactive 13 RPR TNP Nonreactive RPR Titer TNP Laboratory test 09/01/2015 Hepatitis C Antibody Nonreactive Nonreactive 14 finding HIV 1/2 AB Evaluation 09/01/2015 HIV 1 2 Antibody Nonreactive Nonreactive 15 GC/Chlamydia Amplified 08/31/2015 Chlamydia trachomatis Negative Negative Rna Rna Neisseria gonorrhoeae (GC) Rna Negative Negative Laboratory test 08/31/2015 Gardnerella/Yeast: Vaginal SEE RESULT BELOW 16 finding Dna Trichomonas Vaginalis Rna Negative Negative 17 HPV Rna Ww/Reflex Genotype Negative Negative 18 Laboratory test finding 08/31/2015 Cytology SEE RESULT BELOW 19 Urinalysis Profile 08/09/2015 Urine Color Yellow Urine Appearance Clear Urine Specific [place] 1.011 1.010-1.030 Urine pH 8.0 5-9 Urine Urobilinogen Negative Negative Urine Ketones Negative Negative Urine Protein Negative Negative Urine Leukocytes Negative Negative Urine Blood Negative Negative Urine Nitrite Negative Negative Urine Bilirubin Negative Negative Urine Glucose Negative Negative Lipid Profile (Trig/Chol/HDL) 08/09/2015 Triglycerides 132 mg/dL 20 Cholesterol 190 mg/dL 21 HDL Cholesterol 50.1 mg/dL 22 LDL Cholesterol 114 mg/dL 23 Laboratory test finding 08/09/2015 TSH (Thyroid Stim Horm) 1.93 ?IU/mL 0.34-5.60 Comp Metabolic Panel 08/09/2015 Sodium 135 mmol/L 133-145 Potassium 4.4 mmol/L 3.5-5.0 Chloride 103 mmol/L 101-111 Co2 Carbon Dioxide 28 mmol/L 22-32 Anion Gap 4 mmol/L 2-11 Glucose 99 mg/dL 70-100 Blood Urea Nitrogen 10 mg/dL 6-24 Creatinine 0.79 mg/dL 0.51-0.95 BUN/Creatinine Ratio 12.7 8-20 Calcium 8.9 mg/dL 8.6-10.3 Total Protein 6.5 g/dL 6.4-8.9 Albumin 4.3 g/dL 3.2-5.2 Globulin 2.2 g/dL 2-4 Albumin/Globulin Ratio 2.0 1-3 Total Bilirubin 0.50 mg/dL 0.2-1.0 Alkaline Phosphatase 70 U/L 34-104 Alt 13 U/L 7-52 Ast 11 U/L Low 13-39 Egfr Non- 78.7 >60 Egfr 101.2 >60 24 CBC Auto Diff 08/09/2015 White Blood Count 9.0 10^3/uL 4.8-10.8 Red Blood Count 5.08 10^6/uL 4.0-5.4 Hemoglobin 14.4 g/dL 12.0-16.0 Hematocrit 44 % 35-47 Mean Corpuscular Volume 86 fL 80-97 Mean Corpuscular Hemoglobin 28 pg 27-31 Mean Corpuscular HGB Conc 33 g/dL 31-36 Red Cell Distribution Width 13 % 10.5-15 Platelet Count 331 10^3/uL 150-450 Mean Platelet Volume 7 um3 Low 7.4-10.4 Abs Neutrophils 5.5 10^3/uL 1.5-7.7 Abs Lymphocytes 2.9 10^3/uL 1.0-4.8 Abs Monocytes 0.5 10^3/uL 0-0.8 Abs Eosinophils 0.1 10^3/uL 0-0.6 Abs Basophils 0.1 10^3/uL 0-0.2 Abs Nucleated RBC 0.01 10^3/uL Granulocyte % 60.7 % 38-83 Lymphocyte % 31.8 % 25-47 Monocyte % 6.0 % 1-9 Eosinophil % 0.8 % 0-6 Basophil % 0.7 % 0-2 Nucleated Red Blood Cells % 0.1 Lipid Profile (Trig/Chol/HDL) 09/06/2011 Triglyceride 100 mg/dL 40-200 Cholesterol 185 mg/dL Less Than 200 25 High Density Lipoprotein 46 mg/dL 40-60 26 Cholesterol/HDL Ratio 4.02 AVERAGE 1-4.44 Low Density Lipoprotein 119 mg/dL High Less Than 100 27 Vad 09/06/2011 Vad Final NONREACTIVE Nonreactive 28 Comp Metabolic Panel 09/06/2011 Sodium 135 mmol/L 135-145 Potassium 4.7 mmol/L 3.5-5.0 Chloride 105 mmol/L 101-111 Co2 (Carbon Dioxide) 26.0 mmol/L 22-32 Anion Gap 4.0 mmol/L 2-11 29 Glucose 102 mg/dL High 70-100 BUN 11 mg/dL 6-24 Creatinine 0.8 mg/dL 0.50-1.40 One Over Creatinine 1.25 BUN/Creatinine Ratio 13.8 8-20 Calcium 8.6 mg/dL 8.1-9.9 Total Protein 6.5 GM/DL 6.2-8.1 Albumin 3.7 GM/DL 3.6-5.4 Globulin 2.8 GM/DL 2-4 Albumin/Globulin Ratio 1.3 1-3 Bilirubin Total 0.8 mg/dL 0.4-1.5 30 Alkaline Phosphatase 60 U/L 30-110 Alt (SGPT) 27 U/L 14-54 Ast (Sgot) 14 U/L 12-42 eGFR Non- 79.0 > 60 eGFR 101.7 > 60 31 CBC Auto Diff 09/06/2011 White Blood Count 7.9 CUMM 4.8-10.8 Red Cell Count 4.71 CUMM 4.2-5.4 Hemoglobin 13.9 g/dL 12.0-16.0 Hematocrit 40 % 35-47 Mean Corpuscular Volume 85 um3 79-97 Mean Corpuscular Hemoglob 29 pg 27-31 Mean Corpuscular HGB Cone 35 g/dL 32-36 Redcell Distribution WDTH 12 % 10.5-15 Platelet Count 299 CUMM 150-450 Mean Platelet Volume 7.9 um3 7.4-10.4 Gran % 53.0 % 38-83 Lymph % 37.8 % 25-47 Mononuclear % 6.9 % 1-9 Eosinophil % 1.8 % 0-6 Basophil % 0.5 % 0-2 Abs Lymphs 3.0 1.0-4.8 Abs Mononuclear 0.5 0-0.8 Absolute Neutrophil Count 4.2 1.5-7.7 Abs Eosinophils 0.1 0-0.6 Abs Basophils 0 0-0.2 Laboratory test finding 09/05/2011 Cytology <SEE NOTE&gt ; 32 1 Desirable: <150 Borderline High: 150-199 High: 200-499 Very High: >500 2 Desirable: <200 Borderline High: 200-239 High: >239 3 Low: <40 Desirable: 40-60 High: >60 4 Desirable: <100 Near Optimal: 100-129 Borderline High: 130-159 High: 160-189 Very High: >189 5 FASTING 6 REFERENCE VALUE Not Applicable 7 HLA-B27 antigen was detected. Approximately 8% of the normal population carries the HLA-B27 antigen. HLA-B27 is present in approximately 89% of patients with ankylosing spondylitis, 79% of patients with Nehemias's syndrome and 42% of patients with juvenile rheumatoid arthritis. However, lacking other data, it is not diagnostic for these disorders. This test does not differentiate B27 alleles. i.e. B*27:05, B*27:06, etc. ADDITIONAL INFORMATION Method: Flow Cytometry Performing Laboratory CLIA# [id number] Test Performed by: [address] [address] 8 Normal Range 180 to 914 Indeterminate Range 145 to 180 Deficient Range <145 9 It is recognized that currently available assays for the detection of antibodies to HIV-1 and/or HIV-2 may not detect all infected individuals. HIV antibodies may be undetectable in some stages of the infection and in some clinical conditions. The performance of this assay has not been established for populations of infants or children. Assayed by Chemiluminescence Microparticle Immunoassay on the Siemens Advia ObjectVideoaur CP. Values obtained with different methods or kits cannot be used interchangeably.The diagnostic specificity of the ADVIA Centaur 1/O/2 Enhanced assay in the low risk population was 99.90% (6052/6058) with a 95% confidence interval of 99.78 to 99.96%. 10 Because ethnic data is not always readily available, this report includes an eGFR for both -Americans and non- Americans. The National Kidney Disease Education Program (NKDEP) does not endorse the use of the MDRD equation for patients that are not between the ages of 18 and 70, are , have extremes of body size, muscle mass, or nutritional status, or are non- or non-. According to the National Kidney Foundation, irrespective of diagnosis, the stage of the disease is based on the level of kidney function: Stage Description GFR(mL/min/1.73 m(2)) 1 Kidney damage with normal or decreased GFR 90 2 Kidney damage with mild decrease in GFR 60-89 3 Moderate decrease in GFR 30-59 4 Severe decrease in GFR 15-29 5 Kidney failure <15 (or dialysis) 11 If is still suspected, please repeat test after 48 to 72 hours. This test detects intact HCG only and is indicated for the early detection of . 12 Because ethnic data is not always readily available, this report includes an eGFR for both -Americans and non- Americans. The National Kidney Disease Education Program (NKDEP) does not endorse the use of the MDRD equation for patients that are not between the ages of 18 and 70, are , have extremes of body size, muscle mass, or nutritional status, or are non- or non-. According to the National Kidney Foundation, irrespective of diagnosis, the stage of the disease is based on the level of kidney function: Stage Description GFR(mL/min/1.73 m(2)) 1 Kidney damage with normal or decreased GFR 90 2 Kidney damage with mild decrease in GFR 60-89 3 Moderate decrease in GFR 30-59 4 Severe decrease in GFR 15-29 5 Kidney failure <15 (or dialysis) 13 Warning: A positive result is not useful for establishing a diagnosis of syphilis. In most situations, such a result may reflect a prior treated infection; a negative result can exclude a diagnosis of syphilis except for incubating or early primary disease. 14 , Pediatric (<=12yrs) or Maternal?: NO 15 It is recognized that currently available assays for the detection of antibodies to HIV-1 and/or HIV-2 may not detect all infected individuals. HIV antibodies may be undetectable in some stages of the infection and in some clinical conditions. The performance of this assay has not been established for populations of infants or children. Assayed by Chemiluminescence Microparticle Immunoassay on the Siemens Advia Centaur CP. Values obtained with different methods or kits cannot be used interchangeably.The diagnostic specificity of the ADVIA Centaur 1/O/2 Enhanced assay in the low risk population was 99.90% (6052/6058) with a 95% confidence interval of 99.78 to 99.96%. 16 SEE RESULT BELOW Name: BRINA RANKIN : [address]: Parth Anderson [employer] Acct: [id number] Unit: [id number] AGE: 45 Location: [facility] Re08/31/15 SEX: F Status: REG REF SPEC: [id number] JACKELYN: 08/31/15-[address]: Parth Anderson [employer] REQ: [id number] RECD: 08/31/15 STATUS: COMP _ SOURCE: VAGINAL SPDESC: ORDERED: Aiden,Yeast DNA Procedure Result Reported Site Gardnerella/Yeast: Vaginal DNA Final 09/01/15- 1136 ML Organism 1 Negative Gardnerella Organism 2 Negative Agnes The presence of G. vaginalis, although suggestive, is not diagnostic for bacterial vaginosis. Results should be interpreted in conjuction with other clinical and laboratory data available. Women with vaginal discharge should be evaluated for risk factors of cervicitis and pelvic inflammatory disease, toxic shock syndrome (S.aureus), and if present, evaluated for organisms not included in this assay such as N. gonorrhoeae, C. trachomatis, Mobiluncus, Mycoplasma and/or Prevotella. Mixed infections may occur. The performance of this test on patient specimens collected during or immediately after antimicrobial therapy is unknown. The presence or absence of Agnes species, or G. vaginalis cannot be used as a test for therapeutic success or failure. * ML - MAIN LAB ([facility]) . END OF REPORT * ML=Testing performed at Main Lab DEPARTMENT OF PATHOLOGY, [address] [place] [address] Ajay Davis M.D. Director [facility] # [id number] 17 GC/Chlamydia Source?: Thin Prep HPV Source?: Thin Prep Trichomonas Source: Endocervical 18 The high-risk HPV types detected by the assay include: 16, 18, 31, 33, 35, 39, 45, 51, 52, 56, 58, 59, 66, and 68. 19 SEE RESULT BELOW Name: BRINA RANKIN : [address]: Parth Anderson NP Acct: [id number] Unit: [id number] AGE: 45 Location: [facility] Re08/31/15 SEX: F Status: REG REF SPEC: [id number] JACKELYN: 08/31/15-1200 [facility] DR: Parth Andersno [employer] REQ: [id number] RECD: 08/31/15 STATUS: SOUT _ ORDERED: IMAGE ANALYSIS, HPV/Thin Prep, HPV 16/18 GENE FINAL DIAGNOSIS Negative for Intraepithelial lesion or Malignancy A. Ectocervical/Endocervical Specimen Adequacy: Satisfactory of evaluation Transformation zone component identified Patient Information: HPV: High risk HPV RNA testing regardless of pap results. HPV 16/18 Genotype for HPV pos Actual Specimen Date: 08/31/15 Last Menstrual Date: 08/22/15 Date of Last Specimen: 02/16/14 ?: N Post Menopausal?: N Hysterectomy?: N Previous Abnormal Pap Smears?:Y If Yes, enter Diagnosis: +HPV Date Time Test Result Flag (u) Normal Range 08/31/15 1200 HPV RNA RFLX GE Negative Negative The high-risk HPV types detected by the assay include: 16, 18, 31, 33, 35, 39, 45, 51, 52, 56, 58, 59, 66, and 68. Signed (signature on file) [facility] 09/01 1306 This Pap test was evaluated with the assistance of the [employer] Test Imaging System. Due to cytologic findings at the tobacco cloth reclaimer microscope, comprehensive manual rescreening by a Weather Algorithm Scientist may be required. The Pap Smear is a screening test designed to aid in the detection of premalignant and malignant conditions of the uterine cervix. It is not a diagnostic procedure and should not be used as the sole means of detecting cervical cancer. Both false- positive and false- negative reports do occur. Depending on your risk status, a Pap smear should be obtained and evaluated every 1-3 years. END OF REPORT * ML=Testing performed at Main Lab DEPARTMENT OF PATHOLOGY, [address] [place] [address] RUN DATE: 09/01/15 [facility] LAB LIVE PAGE 1 Patient: BRINA RANKIN Annabel [id number] (Continued) Ajay Davis M.D. Director [facility] # [id number] 20 Desirable <150 Borderline high 150-199 High 200-499 Very High >500 21 Desirable <200 Borderline high 200-239 High >239 22 Low <40 Desirable: 40-60 High: >60 23 Desirable: <100 mg/dL Near Optimal: 100-129 mg/dL Borderline High: 130-159 mg/dL High: 160-189 mg/dL Very High: >189 mg/dL 24 Because ethnic data is not always readily available, this report includes an eGFR for both -Americans and non- Americans. The National Kidney Disease Education Program (NKDEP) does not endorse the use of the MDRD equation for patients that are not between the ages of 18 and 70, are , have extremes of body size, muscle mass, or nutritional status, or are non- or non-. According to the National Kidney Foundation, irrespective of diagnosis, the stage of the disease is based on the level of kidney function: Stage Description GFR(mL/min/1.73 m(2)) 1 Kidney damage with normal or decreased GFR 90 2 Kidney damage with mild decrease in GFR 60-89 3 Moderate decrease in GFR 30-59 4 Severe decrease in GFR 15-29 5 Kidney failure <15 (or dialysis) 25 CHOLESTEROL INTERPRETATION: Desirable: Less than 200 MG/DL Borderline-High Risk: 200-239 MG/DL High-Risk: 240 MG/DL and over 26 HDL INTERPRETATION: Undesirable: High Risk: Less than 40 MG/DL Desirable: Low Risk: Greater than 60 MG/DL 27 LDL INTERPRETATION: Low Risk Optimal Level: LDL Less than 100 MG/DL Near or Above Optimal: LDL 100-129 MG/DL Borderline High Risk: LDL 130-159 MG/DL High Risk: LDL 160-189 MG/DL Very High Risk: LDL Greater than 189 MG/DL 28 FINAL INTERPRETATION: No HIV antibody is detected. . This information has been disclosed to you from confidential records which are protected by [place] State law. State law prohibits you from making further disclosure of this information without the specific written consent of the person to whom it pertains, or as otherwise permitted by law. Any unauthorized further disclosure in violation of state law may result in a fine or mcfp sentence or both. General authorization for the release of medical or other information is not, except in limited circumstances set forth in Part 63, Title 10, of [facility], sufficient authorization for further disclosure. Disclosure of confidential HIV information that occurs as the result of a general authorization for the release of medical or other information will be in violation of the state law and may result in a fine or a mcfp sentence. . 29 Anion gap measurement may be of limited value in the presence of any alkalosis, especially in a combined acid base disorder. . 30 A metabolite of Naproxen, O-desmethylnaproxen, has been shown to interfere with the Jendrassik-Drake method for measuring total bilirubin. Samples from patients who have taken Naproxen have shown spurious elevation in total bilirubin levels. 31 Because ethnic data is not always readily available, this report includes an eGFR for both -Americans and non- Americans. The National Kidney Disease Education Program (NKDEP) does not endorse the use of the MDRD equation for patients that are not between the ages of 18 and 70, are , have extremes of body size, muscle mass, or nutritional status, or are non- or non-. According to the National Kidney Foundation, irrespective of diagnosis, the stage of the disease is based on the level of kidney function: Stage Description GFR(mL/min/1.73 m(2)) 1 Kidney damage with normal or decreased GFR 90 2 Kidney damage with mild decrease in GFR 60-89 3 Moderate decrease in GFR 30-59 4 Severe decrease in GFR 15-29 5 Kidney failure <15 (or dialysis) 32 ---- RUN DATE: 09/14/11 [facility] NMI LIVE PAGE 1 RUN TIME: 1145 Specimen Inquiry RUN USER: INTERFACE -- Name: BRINA RANKIN Acckevin#: [id number] Status: REG REF Re09/05/11 Age/Sex: 41/F Unit#: [id number] Location: [facility] : 70 -- Specimen: [id number] SYED Spec Date: 09/05/[address]: Mary naqvi MD Spec Type: CYTOLOGY Received: 09/06/11-1052 Copies to: SOURCE ECTOCERVICAL/ENDOCERVICAL Thin Prep with Reflex HPV Test PATIENT INFORMATION ACTUAL COLLECTION DATE: 09/05/11 ? No POST MENOPAUSAL? No HYSTERECTOMY? No PREVIOUS ABNORMAL PAP SMEARS Yes PATIENT HISTORY: Last menstrual period Unknown, IUD, Cervical dysplasia, S/P conization, Atypical squamous cells of undetermined significance. 2007 ADEQUACY OF SPECIMEN Unsatisfactory for evaluation * Specimen rejected/not processed: * See note. DIAGNOSIS Please repeat. NOTE ThinPrep vial had no patient identifiers. ADDENDUM Addendum #1 Entered: 09/14/11-114 DIAGNOSIS UNCHANGED. RESENDING RESULTS TO INTERFACE. Addendum Review Antony RICCI(ASCP) 09/14/11 -- -- DEPARTMENT OF PATHOLOGY, [address] [place] [address] [facility] Permit #[id number] Ajay Davis M.D. Director Tosha Yarbrough M.D. Jewelry Engraver Dir pryor -- -- RUN DATE: 09/14/11 [facility] NMI LIVE PAGE 2 RUN TIME: 1145 Specimen Inquiry RUN USER: INTERFACE -- Name: BRINA RANKIN Status: REG REF Re09/05/11 Age/Sex: 41/F Unit#: [id number] Location: [facility] : 70 -- -- CONTINUED -- Final Interpretation electronically signed by: Antony RICCI([facility]) 09/06/11 131 3 -- -- DEPARTMENT OF PATHOLOGY, [address] [place] [address] [facility] Permit #[id number] Ajay Davis M.D. Director Tosha Yarbrough M.D. Jewelry Engraver Dir roya -- Procedures Date CPT Code Description Status 10/09/2017 58469 Trigger Finger Release Incision / Tendon Sheath Completed Incision 10/09/2017 62225 Trigger Finger Release Incision / Tendon Sheath Completed Incision 08/14/2017 61116 Carpal Tunnel Release Completed 08/14/2017 80187 Carpal Tunnel Release Completed 06/19/201754787 Carpal Tunnel Release Completed 06/19/2017 65318 Carpal Tunnel Release Completed 05/11/2017 46478 Trigger Finger Release Incision / Tendon Sheath Completed Incision 05/11/2017 27220 Trigger Finger Release Incision / Tendon Sheath Completed Incision 08/11/2016 Mammogram Completed 10/11/2015 94285 Diffusing Capacity Completed 10/11/2015 76464 Plethysmography Determination Lung Volumes & Per Completed Airway Resist 10/11/2015 52524 Pulmonary Function><Bronchodil Completed 08/09/2015 Mammogram Completed 09/26/2011 Mammogram Completed Encounters Type Date Location Provider CPT E/M Dx Office Visit 10/03/2017 [facility] Luz Hendrix, 32419 M65.311 8:30a Of [place] Sanchez Office Visit 08/20/2017 [facility] Internal Medicine Ethan Morris, 18829 Z00.01 9:30a - [place] Landry Sanchez,FACP F17.210 F33.1 Z11.4 Z23 Z00.00 Office Visit 06/14/2017 1:15p [facility] Luz Hendrix, 19420 G56.01 Of [place] M65.312 Office Visit 06/12/2017 9:40a [facility] Internal Medicine Ethan Morris, 32421 H91.91 - Nitish Sanchez,FACP J01.10 Office Visit 05/03/2017 1:30p [facility] Luz Hendrix, 24303 M65.312 Of [place] Office Visit 04/12/2017 1:45p [facility] Lelo Jayde, 92901 M65.312 Of Du WU Office Visit 02/28/2017 2:20p [facility] Internal Medicine Ethan Morris, 39262 R05 - [place] Landry Sanchez,FACP J30.9 Office Visit 09/20/2016 8:40a [facility] [place] [address] Office Visit 02/21/2016 3:00p [facility] [place] [address] Z71.6 J20.9 Office Visit 10/25/2015 1:00p [facility] Internal Medicine Petar Brenner M.D. 16068 M54.2 - [address] M54.89 Office Visit 10/25/2015 1:40p [facility] [place] [address] J45.991 R94.4 Office Visit 10/05/2015 2:00p [facility] [place] [address] H66.92 J45.991 Z72.0 Office Visit 09/21/2015 3:00p [facility] Internal Medicine - Parth Anderson, BULK COOLERS INSTALLER [address] R11.0 Office Visit 08/24/2015 1:20p [facility] Internal Medicine Petar Brenner M.D. 54583 G43.009 - [address] J45.20 K21.9 R92.8 F17.210 E66.3 Z23 Office Visit 08/23/2015 3:20p [facility] Internal Medicine Petar Brenner M.D. 00003 M54.2 - [address] M54.2 M54.6 M54.6 Office Visit 08/03/2015 3:00p [facility] Internal Medicine Petar Brenner M.D. 81894 Z00.01 - [address] G43.009 J45.20 K21.9 F17.210 E66.3 Z12.31 Z23 Z00.00 Office Visit 07/22/2015 3:00p [facility] Internal Medicine Petar Brenner M.D. 27437 M54.2 - [address] M54.5 Office Visit 09/05/2011 9:00a DO Not Use Shirt Line Operator At Mary Velasco M.D. 61781 V72.31 [facility] Office Visit 08/22/2011 11:00a DO Not Use Shirt Line Operator At Mary Velasco M.D. 80287 305.1 [facility] 786.05 Plan of Care Future Appointment(s):11/15/2017 8:00 am - Luz Hendrix M.D. at [facility]11/19/2017 2:00 pm - Ethan Morris M.D.,FACP at [facility] Internal Medicine - [address]/18/2017 - Lelo Donohue, [facility]-CM65.311 Trigger thumb, right thumbFollow up:Follow up: 4 weeks
--- OUTSIDE RECORDS SUMMARY | 2017-10-21 12:30 | XMS REPORT ---
:1970 External Reference #:[id number] Author Organization [employer] Address [address] [address] Phone [phone] Care Team Providers Name Role Phone Ethan Morris MD Primary Care Physician Unavailable Payers Type Date Identification Numbers Payment Provider Subscriber Commercial Effective: Policy Number: [id number] BS Facets Brina Rankin 2015 PayID: [id number] [address] [address] APURVA Joseph [address] Medigap Part B Effective: 2014 Policy Number: BS Facets Brina Rankin [id number] Expires: 2015 PayID: [id number] [address] [address] APURVA Joseph [address]95[address] Medigap Part B Effective: 2010 Policy Number: Local 589 InsDominick Rankin [id number] Fund Expires: 2011 [address] [place] [address] Workers Compensation Onset: 2015 Policy Number: Armando Rankin [id number] PayID: [id number] [address] [address] [place] [address] Problems Date Description Provider Status Onset: 09/05/2011 Tobacco user Mary Velasco M.D. 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 Cigarette Use Light tobacco smoker (10 or [...] Active Tablets 0.5mg X 55tab as Ethan Forde Vinh 2016 11 & s directed Shari Morris, 1 mg X 42 M.D.,FACP Citalopram 08/20/ Active Tablets 40mg 90tab 1 by mouth N94.3 Ethan Hydrobromide 2017 s every day Shari Morris M.D.,FACP Valacyclovir HCL 06/12/ Active Tablets 1gm 21tab by mouth Ethan 2017 s every 8 DDominick Morris, hours for Yolanda.DDominick,FACErin 1 week Proair HFA 08/03/ Active Aerosol 108(90Bas 1unit 2 puffs R06.02 Parth 2014 e) s every 4-6 VINEET Anderson mcg/Act hours as needed Prevacid 00/ Active Capsules 30mg 1 by mouth Unknown 0000 DR every day Vesicare / Active Tablets 10mg 1 by mouth Unknown 0000 every day Hydrocodone-Aceta 08/14/ Hx Tablets 5-325mg 15tab 1 tab by Luz walker 2016 - s mouth Hendrix, 08/20/ every 4- 6 M.D. 2017 hours as needed pain Ultracet 08/13/ Hx Tablets 37.5-325m 15tab 1 tab by Luz 2016 - g s mouth Hendrix, 08/20/ every 4-6 M.D. 2017 hours as needed pain Hydrocodone-Aceta 06/19/ Hx Tablets 5-325mg 15tab 1 tab by Luz walker 2016 mouth Hendrix, 07/18/ every 4- 6 M.D. 2017 hours as needed pain Tramadol 06/14/ Hx Tablets 37.5-325m 20tab 1 tab by uLz Nieves/Mani 2016 s mouth Hendrix, taminophen 07/18/ every 4-6 M.D. 2017 hours as needed pain Augmentin 06/12/ Hx Tablets 875-125mg 20tab by mouth Ethan 2016 - twice a D. Notrees, 06/22/ day M.D.,FACP 2017 Tramadol 05/03/ Hx Tablets 37.5-325m 30tab 1 tab by Ethan Nieves/Mani 2016 s mouth D. Notrees, taminophen 07/18/ every 4-6 M.D.,FACP 2017 hours as needed pain Meloxicam 04/12/ Hx Tablets 7.5mg 30tab take 1 Luz 2016 Roz pill a day Hendrix, 06/12/ by mouth M.D. 2017 Cetirizine HCL 02/28/ Hx Tablets 10mg 30tab 1 by mouth Ethan 2016 - every day D. Notrees, 08/20/ as needed M.D.,FACP 2016 Asmanex HFA 02/28/ Hx Aerosol 100mcg/Ac 39gm 2 puff Ethan 2016 - t twice a D. Notrees, 06/12/ day M.D.,FACP 2017 (Samples) Amoxicillin/Clavu 09/20/ Hx Tablets 875-125mg 20tab 1 tablet J01.90 Parth lanate Potassium 2016 - by mouth VINEET Anderson 01/14/ twice a 2017 day x's 10 days Citalopram 02/20/ Hx Tablets 20mg 45tab 1 1/2 tab N94.3 Ethan Hydrobromide 2015 - s by mouth Shari Morris, 08/20/ every day M.DDominick,FACP 2017 Chantix Starting 02/20/ Hx Tablets 0.5mg X 1tabs as Z71.6 Parth Justice 2015 - & directed Justin YOUTH CARE PROFESSIONAL 09/20/ 1 mg X 42 continue 2017 for 12 weeks Azithromycin 10/05/ Hx Tablets 250mg 6tabs 2 tabs by J01.90 Parth 2016 - mouth on Eritrean, YOUTH CARE PROFESSIONAL 10/10/ day 1; 1 2015 tab by mouth every day on days 2-5 Citalopram 08/31/ Hx Tablets 20mg 30tab 1 tab by N94.3 Parth Hydrobromide 2014 - mouth Eritrean, VINEET 02/20/ every day 2016 Nicotine 08/03/ Hx [...] Hx Tablets 100mg 60tab 1 tab 305.1 Mary 2010 - s daily Velasco, 07/21/ M.D. 2014 Proair HFA 08/22/ Hx Aerosol 108(90Bas 1unit 2 puffs 786.05 Mary 2010 - e) mcg/ac s every 4-6 Velasco, 08/03/ hrs as M.D. 2014 needed Ibuprofen 00/00/ Hx Tablets 200mg 90tab 2 tablet Unknown 0000 - s prn for 2014 Immunizations CPT Code Status Date Vaccine Lot # [id number] Given 08/20/2017 Pneumonia Vaccine [id number] 83622 Given 08/20/2017 Influenza Virus Vaccine, Quadrivalent, Split, [id number] Preservative Free 14303 Given 08/24/2015 Pneumococcal Conjugate Vaccine 13 Valent For [id number] Intramuscular Use 77961 Given 08/03/2015 Influenza Virus Vaccine, Quadrivalent, Split, [id number] Preservative Free Vital Signs Date Vital Result Comment 10/03/2017 Heart Rate 75 /min BP Systolic [...] >60 12 Ua Routine 09/21/2015 Ua Specific Rupert 1.020 Ua PH 8 Ua Color yellow [...] Color Yellow Urine Appearance Clear Urine Specific Rupert 1.011 1.010-1.030 Urine pH 8.0 5-9 Urine [...] INFORMATION Method: Flow Cytometry Performing Laboratory CLIA# [id number] Test Performed by: [address] [address] 8 Normal Range 180 to 914 Indeterminate [...] [address]: Parth Anderson NP Acct: [id number] Unit: [id number] AGE: 45 Location: [facility] Re08/31/15 SEX: F Status: REG REF SPEC: [id number] JACKELYN: 08/31/15-1200 [facility] DR: Parth Anderson NP REQ: [id number] RECD: 08/31/15 STATUS: COMP _ SOURCE: VAGINAL [...] or failure. * ML - MAIN LAB ([facility]) . END OF REPORT * ML=Testing performed at Main Lab DEPARTMENT OF PATHOLOGY, [address] [place] [address] Ajay Davis M.D. Director [facility] # [id number] 17 GC/Chlamydia Source?: Thin Prep HPV Source?: Thin Prep Trichomonas Source: Endocervical 18 The high-risk HPV types detected by the assay include: 16, 18, 31, 33, 35, 39, 45, 51, 52, 56, 58, 59, 66, and 68. 19 SEE RESULT BELOW Name: JULIANEAlenBRINA : [address]: Parth Anderson NP Acct: [id number] Unit: [id number] AGE: 45 Location: [facility] Re08/31/15 SEX: F Status: REG REF SPEC: [id number] JACKELYN: 08/31/15-[address]: Parth Anderson YOUTH CARE PROFESSIONAL REQ: [id number] RECD: 08/31/15 STATUS: SOUT _ ORDERED: IMAGE [...] 66, and 68. Signed (signature on file) JENNI Oro (ASCP) 09/01 1301 This Pap test was evaluated with the assistance of the [employer] Test Imaging System. Due to cytologic findings at the supervisor train operations microscope, comprehensive manual rescreening by a Equipment Installer may be required. The Pap Smear is [...] performed at Main Lab DEPARTMENT OF PATHOLOGY, [address] [place] [address] RUN DATE: 09/01/15 [facility] LAB LIVE PAGE 1 Patient: BRINA RANKIN [id number] (Continued) Ajay Davis M.D. Director [facility] # [id number] 20 Desirable <150 Borderline high 150-199 High [...] from confidential records which are protected by [place] State law. State law prohibits you from making further disclosure of this information without the specific written consent of the person to whom it pertains, or as otherwise permitted by law. Any unauthorized further disclosure in violation of state law may result in a fine or [place] [facility] sentence or both. General authorization for the release of medical or other information is not, except in limited circumstances set forth in Part 63, Title 10, of [facility], sufficient authorization for further disclosure. Disclosure of confidential HIV information that occurs as the result of a general authorization for the release of medical or other information will be in violation of the state law and may result in a fine or a [place] health care facility sentence. . 29 Anion gap measurement may be of limited value in the presence of any alkalosis, especially in a combined acid base disorder. . 30 A metabolite of Naproxen, O-desmethylnaproxen, has been shown to interfere with the Jendrassik-Stites method for measuring total bilirubin. Samples from [...] (or dialysis) 32 ---- RUN DATE: 09/14/11 [facility] NMI LIVE PAGE 1 RUN TIME: 1145 Specimen Inquiry RUN USER: INTERFACE -- Name: JULIANEAlenBRINA Acckevin#: [id number] Status: REG REF Re09/05/11 Age/Sex: 41/F Unit#: [id number] Location: [facility] : 70 -- Specimen: [id number] SOUT Spec Date: 09/05/[address]: Mary naqvi [...] no patient identifiers. ADDENDUM Addendum #1 Entered: 09/14/11-1144 DIAGNOSIS UNCHANGED. RESENDING RESULTS TO INTERFACE. Addendum Review Antony RICCI([facility]) 09/14/11 -- -- DEPARTMENT OF PATHOLOGY, [address] [place] [address] [facility] Permit #[id number] Ajay Davis M.D. Director Tosha Yarbrough M.D. Seconds Inspector Dir roya -- -- RUN DATE: 09/14/11 [facility] NMI LIVE PAGE 2 RUN TIME: 1145 Specimen Inquiry RUN USER: INTERFACE -- Name: BRINA RANKIN Status: REG REF Re09/05/11 Age/Sex: 41/F Unit#: [id number] Location: [facility] : 70 -- -- CONTINUED -- Final Interpretation electronically signed by: Antony RICCI([facility]) 09/06/11 131 3 -- -- DEPARTMENT OF PATHOLOGY, [address] [place] [address] [facility] Permit #[id number] Ajay Davis M.D. Director Tosha Yarbrough M.D. Seconds Inspector Dir roya -- Procedures Date CPT Code Description Status 08/14/2017 99369 Carpal Tunnel Release Completed 08/14/2017 31211 Carpal Tunnel Release Completed 06/19/2017 03563 Carpal Tunnel Release Completed 06/19/2017 61077 Carpal Tunnel Release Completed 05/11/2017 99292 Trigger Finger Release Incision / Tendon Sheath Completed Incision 05/11/2017 66230 Trigger Finger Release Incision / Tendon Sheath Completed Incision 08/11/2016 Mammogram Completed 10/11/2015 51674 Diffusing Capacity Completed 10/11/2015 73367 Plethysmography Determination Lung Volumes & Per Completed Airway Resist 10/11/2015 51674 Pulmonary Function><Bronchodil Completed 08/09/2015 Mammogram Completed 09/26/2011 Mammogram Completed Encounters Type Date Location Provider CPT E/M Dx Office Visit 08/20/2017 9:30a 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 Ethan Morris, 61707 Z00.01 Medicine - [place] Landry Sanchez,FACP F17.210 F33.1 Z11.4 Z23 Z00.00 Office Visit 06/14/2017 1:15p [facility] Luz Hendrix, 05204 G56.01 Of Du Sanchez M65.312 Office Visit 06/12/2017 9:40a [facility] Internal Medicine Ethan HardyDominick Morris, 97409 H91.91 - Nitish Sanchez,FACP J01.10 Office Visit 05/03/2017 1:30p [facility] Luz Hendrix, 27890 M65.312 Of [place] Sanchez Office Visit 04/12/2017 1:45p [facility] Lelo Donohue, 44701 M65.312 Of Du WU Office Visit 02/28/2017 2:20p [facility] Internal Medicine Ethan HardyDominick Morris, 12071 R05 - [address] Laura,FACP J30.9 Office Visit 09/20/2016 8:40a [facility] Internal Medicine - Parth Anderson, VINEET [address] Office Visit 02/21/2016 3:00p [facility] Internal Medicine - Parth Anderson, VINEET [address] Z71.6 J20.9 Office Visit 10/25/2015 1:00p [facility] Internal Medicine Petar Brenner M.D. 19329 M54.2 - [address] M54.89 Office Visit 10/25/2015 1:40p [facility] Internal Medicine - Parth Anderson, VINEET [address] J45.991 R94.4 Office Visit 10/05/2015 2:00p [facility] Internal Medicine - Parth Anderson, VINEET [address] H66.92 J45.991 Z72.0 Office Visit 09/21/2015 3:00p [facility] [place] [address] R11.0 Office Visit 08/24/2015 1:20p [facility] Internal Medicine Petar Brenner M.D. 03991 G43.009 - [address] J45.20 K21.9 R92.8 F17.210 E66.3 Z23 Office Visit 08/23/2015 3:20p [facility] Internal Medicine Petar Brenner M.D. 52131 M54.2 - [address] M54.2 M54.6 M54.6 Office Visit 08/03/2015 3:00p [facility] Internal Medicine Petar Brenner M.D. 03906 Z00.01 - [address] G43.009 J45.20 K21.9 F17.210 E66.3 Z12.31 Z23 Z00.00 Office Visit 07/22/2015 3:00p [facility] Internal Medicine Petar Brenner M.D. 83845 M54.2 - [address] M54.5 Office Visit 09/05/2011 9:00a DO Not Use Waterworks Chief Engineer At Mary Velasco M.D. 62807 V72.31 [facility] Office Visit 08/22/2011 11:00a DO Not Use Waterworks Chief Engineer At Mary Velasco M.D. 59404 305.1 [facility] 786.05 Plan of Care Future Appointment(s):10/18/2017 9:30 am - Luz Hendrix M.D. at [facility]11/19/2017 2:00 pm - Ethan Morris M.D.,FACP at [facility] Internal Medicine - [address]10/03/2017 - Luz Hendrix M.D.M65.311 Trigger thumb, right thumbFollow up:Follow up: 9-10 days postop
[2017-10-21] MEDS ORDERED: Ibuprofen TAB* 600 MG PO ONE (12:50)
--- NOTE | 2017-10-21 13:50 | RAD ---
INDICATION: Right rib pain after a fall COMPARISON: None. TECHNIQUE: 5 views of the right ribs were obtained. FINDINGS: No fracture or significant focal osseous abnormality is seen. No pneumothorax is apparent. Limited views demonstrate grossly clear lungs. IMPRESSION: No radiographically apparent displaced rib fracture or pneumothorax. If the patient's symptoms persist, follow-up imaging is recommended.
--- NOTE | 2017-10-21 13:51 | RAD ---
INDICATION: Right shoulder and forearm pain after a fall COMPARISON: None. TECHNIQUE: 4 views of the right shoulder and 2 views of the right forearm were obtained. FINDINGS: The adequately corticated bones are in normal alignment. Joint spaces appear maintained. No fracture, dislocation or focal bony abnormality is seen. IMPRESSION: NO RADIOGRAPHICALLY APPARENT FRACTURE OR DISLOCATION INVOLVING THE RIGHT SHOULDER OR FOREARM. If the patient's symptoms persist, follow-up imaging is recommended.
[2017-10-21 14:47] VITALS: BP 119/74
--- NOTE | 2017-10-21 16:33 | ED ---
Upper Extremity Pain - HPI Summary HPI Summary: Patient presents today status post fall to her right side. She endorses right shoulder pain and elbow pain and forearm pain. Pain is mostly over the right dorsum of the forearm with no obvious deformity, ecchymosis, or bleeding. She has full range of motion to the elbow and shoulder joints. Decreased range of motion in the wrist due to pain in the dorsum of the right proximal forearm. She also endorses hitting her head, but denies loss of consciousness or other neurological symptoms. She denies visual changes, confusion, memory loss. Patient is otherwise healthy. Denies any other injuries. - History of Current Complaint Chief Complaint: EDTraumaMultiple Stated Complaint: FALL, RIGHT SHOULDER PAIN Time Seen by Provider: 10/21/17 12:31 Hx Obtained From: Patient Hx Last Menstrual Period: 2 wks ago Mechanism Of Injury: Blunt Trauma Onset/Duration: Started Hours Ago Timing: Constant Severity Initially: Moderate Severity Currently: Moderate Pain Location: Shoulder, Arm, Forearm Character: Aching Aggravating Factor(s): Other - Pain with palpation over the dorsum aspect of the proximal radius Alleviating Factor(s): Rest, Ice Associated Signs & Symptoms: Positive: Swelling Related History: Dominant Hand Right - Risk Factors Non-Orthopedic Risk Factor: Negative DVT Risk Factors: Negative Septic Arthritis Risk Factor: Negative Compartment Syndrome Risk Factors: Pain - Allergies/Home Medications Allergies/Adverse Reactions: Allergies Allergy/AdvReac Type Severity Reaction Status Date / Time No Known Allergies Allergy Verified 10/21/17 12:22 PMH/Surg Hx/FS Hx/Imm Hx Previously Healthy: Yes Endocrine/Hematology History: Denies: Hx Diabetes, Hx Systemic Lupus Erythematosus, Hx Thyroid Disease Cardiovascular History: Denies: Hx Congestive Heart Failure, Hx Hypertension Respiratory History: Reports: Hx Asthma - MEDS NEEDED, Other Respiratory Problems/Disorders - SMOKER Denies: Hx Chronic Obstructive Pulmonary Disease (COPD) GI History: Reports: Hx Gastroesophageal Reflux Disease - WELL CONTROLLED PT STATES WITH MEDS, Hx Ulcer - gerd History: Denies: Hx Dialysis, Hx Renal Disease Musculoskeletal History: Reports: Hx Tendonitis - CARPAL TUNNEL SYNDROME LEFT Denies: Hx Rheumatoid Arthritis Sensory History: Reports: Hx Contacts or Glasses - reading glasses Denies: Hx Hearing Aid Opthamlomology History: Reports: Hx Contacts or Glasses - reading glasses Neurological History: Reports: Hx Migraine - MONTHLY Psychiatric History: Reports: Hx Anxiety - ON MED - Cancer History Cancer Type, Location and Year: SKIN CA. 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 CERVICAL CA lasar surgery -1994. tonsillectomy as a child. tubal ligation 2015. LEFT THUMB SURGERY 05/03. RIGHT CARPAL TUNNEL RELEASE-06/19/17 [facility] [place]. left carpal tunnel release Hx Anesthesia Reactions: No - Immunization History Hx Pertussis Vaccination: No Immunizations Up to Date: Unable to Obtain/Confirm Infectious Disease History: No Infectious Disease History: Reports: Hx of Known/Suspected MRSA - abcess on abd 2012 x2 Denies: Hx Clostridium Difficile, Hx Hepatitis, Hx Human Immunodeficiency Virus (HIV), Hx Shingles, Hx Tuberculosis, Hx Known/Suspected VRSA, History Other Infectious Disease, Traveled Outside the [place] in Last 30 Days - Social History Occupation: Employed Full-time Lives: With Family Alcohol Use: Occasionally Alcohol Amount: EVERY 2 MONTH Hx Substance Use: No Substance Use Type: Reports: None Hx Tobacco Use: Yes Smoking Status (MU): Heavy Every Day Tobacco Smoker Type: Cigarettes Amount Used/How Often: / ppd, smoked for 30 years Length of Time of Smoking/Using Tobacco: 39 YRS Have You Smoked in the Last Year: Yes Review of Systems Constitutional: Negative Negative: Fever, Chills, Fatigue Eyes: Negative Cardiovascular: Negative Respiratory: Negative Genitourinary: Negative Positive: no symptoms reported, see HPI Positive: Arthralgia - right shoulder elbow and forearm Neurological: Negative All Other Systems Reviewed And Are Negative: Yes Physical Exam Triage Information Reviewed: Yes Vital Signs On Initial Exam: Initial Vitals Temp Pulse Resp BP Pulse Ox 99 F 86 20 136/91 95 10/21/17 12:19 10/21/17 12:19 10/21/17 12:19 10/21/17 12:19 10/21/17 12:19 Vital Signs Reviewed: Yes Appearance: Positive: Well-Appearing, Well-Nourished Skin: Positive: Warm, Skin Color Reflects Adequate Perfusion Head/Face: Positive: Normal Head/Face Inspection Eyes: Positive: EOMI, LETICIA, Conjunctiva Clear Neck: Positive: Supple, Nontender, No Lymphadenopathy Respiratory/Lung Sounds: Positive: Clear to Auscultation, Breath Sounds Present Cardiovascular: Positive: Normal, RRR, Pulses are Symmetrical in both Upper and Lower Extremities Musculoskeletal: Positive: Other - Right forearm pain Neurological: Positive: Speech Normal Psychiatric: Positive: Normal, Affect/Mood Appropriate AVPU Assessment: Alert Diagnostics - Vital Signs Vital Signs Temp Pulse Resp BP Pulse Ox 10/21/17 14:46 98.2 F 63 20 119/74 99 10/21/17 12:19 99 F 86 20 136/91 95 - Laboratory Lab Statement: Any lab studies that have been ordered have been reviewed, and results considered in the medical decision making process. Course/Dx - Course Course Of Treatment: During the course of treatment, the patient is evaluated for blunt trauma to the right shoulder elbow and forearm. X-rays obtained and read by Dr. Oleary as negative findings. I have discussed these findings with Dr. Oleary due to a concern in the proximal right radius on the ulnar side which is the location of the trauma. Dr. Oleary then made an addendum which states: Overlying the ulnar side cortex of the proximal metaphysis of the right radius is an. oblique linear lucent line extending to the medullary cavity. There is no displacement of. the cortex or the bone. There is no fracture on the opposite side cortex. A nutrient. artery is the favored diagnosis but a nondisplaced fracture is not totally excluded. If. the patient's pain persists , follow-up radiography is advised. This finding was discussed over the telephone with COLBY Saravia over the telephone at. 1449 hours on October 21, 2017. I have advised the patient, due to her pain, location of trauma correlating with the concerning x-ray results, sugar tong splint should be placed and follow-up with orthopedics early next week for further assessment. I am unable to determine if this is a nondisplaced fracture, but with clinical correlation sugar tong splint is advised. Splint is placed and patient tolerated well. Neurovascular exam intact. Sling given. Encouraged ibuprofen 600 mg 3 times daily and she will follow-up with orthopedics early next week for evaluation. - Diagnoses Differential Diagnosis/HQI/PQRI: Positive: Fracture (Open), Strain Provider Diagnoses: Forearm pain Discharge - Discharge Plan Condition: Stable Disposition: HOME Patient Education Materials: Arm Fracture in Adults (ED) Referrals: Kashif Torrez MD [Medical Doctor] - Ethan Morris MD [Primary Care Provider] - Additional Instructions: Please follow up with orthopedics early next week Ibuprofen 600 mg 3 times daily for any inflammation or pain Keep in sling and splint I have given you information regarding arm fractures Again, as discussed, I am unsure if you have a fracture in the area of concern He will need to follow up with orthopedics for further evaluation.
== END 2017-10-21 14:46 | disposition home or self-care (01) ==
LOC: ED 12:10
DX: M25.511 Pain in right shoulder (principal); F17.210 Nicotine dependence, cigarettes, uncomplicated
CPT/HCPCS: 99282; A9270-GY

== ENCOUNTER 2018-02-28 07:34 | Emergency (ER) | payer BC ==
[2018-02-28] MEDS ORDERED: diPHENhydraMINE PO* 50 MG PO ONE (08:18)
[2018-02-28] MEDS ORDERED: Ketorolac INJ* 30 MG/ML 1 ML VIAL IV PUSH ONE (08:18)
[2018-02-28] MEDS ORDERED: Metoclopramide IV* 5 MG/ML 2 ML VIAL IV ONE (08:18)
--- NOTE | 2018-02-28 09:10 | RAD ---
HISTORY: Headache COMPARISONS: June 29, 2015 TECHNIQUE: Multiple contiguous axial CT scans were obtained of the head without intravenous contrast. FINDINGS: HEMORRHAGE/INFARCT: There is no hemorrhage or acute infarct. MASSES/SHIFT: There is no mass or shift. EXTRA-AXIAL SPACES: There are no extra-axial fluid collections. SULCI AND VENTRICLES: The sulci and ventricles are normal in size and position for the patient's stated age. CEREBRUM: There are no focal parenchymal abnormalities. BRAINSTEM: There are no focal parenchymal abnormalities. CEREBELLUM: There are no focal parenchymal abnormalities. VESSELS: The vessels are grossly normal. PARANASAL SINUSES: The paranasal sinuses are clear. ORBITS: The orbits are unremarkable. BONES AND SOFT TISSUE: No bone or soft tissue abnormalities are noted. OTHER: None IMPRESSION: NO ACUTE INTRACRANIAL PATHOLOGY.
[2018-02-28 09:12] LABS: ABS Basophils 0.1 10^3/ul (0-0.2); ABS Eosinophils 0.1 10^3/ul (0-0.6); ABS Lymphocytes 2.9 10^3/ul (1.0-4.8); ABS Monocytes 0.6 10^3/ul (0-0.8); ABS Nucleated RBC 0 10^3/ul; Eosinophil % 1.4 % (0-6); Hematocrit 43 % (35-47); Hemoglobin 14.2 g/dl (12.0-16.0); Lymphocyte % 32.9 % (25-47); Mean Corpuscular HGB Conc 33 g/dl (31-36); Mean Corpuscular Hemoglobin 28 pg (27-31); Mean Corpuscular Volume 84 fL (80-97); Mean Platelet Volume 7.3 um3 (7.4-10.4); Nucleated Red Blood Cells % 0.1; Platelet Count 303 10^3/ul (150-450); Red Blood Count 5.07 10^6/ul (4.00-5.40); Red Cell Distribution Width 13 % (10.5-15); White Blood Count 8.7 10^3/ul (3.5-10.8)
[2018-02-28 09:41] LABS: EGFR Non-African American 85.5 (>60)
[2018-02-28] MEDS ORDERED: Gabapentin CAP(*) 100 MG PO ONE (10:56)
[2018-02-28 11:28] VITALS: BP 122/84
--- NOTE | 2018-02-28 18:27 | ED ---
Briana Bach Simon, scribed for Gaudencio Martin MD on 02/28/18 at 0801 . Headache - HPI Summary HPI Summary: This patient is a 47 year old F presenting to [facility] accompanied by her with a chief complaint of right sided ROJO for the past month. She rates the pain severity at 9/10 in triage. Pt denies Hx migraines. Pain described as sharp, endorses pain has gotten worse. Pt denies pain from neck movement or from moving legs. Head movement aggravates pain. Pt endorses shooting pain from neck to head. Pt denies N/V, endorses loss of appetite and photophobia. She tried Excedrin, aleve, and ibuprophen to no avail. Head position has no effect on pain. PMHx overactive bladder. 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 - History Of Current Complaint Chief Complaint: EDHeadache Stated Complaint: HEADACHE Time Seen by Provider: 02/28/18 07:47 Hx Obtained From: Patient Hx Last Menstrual Period: 2 wks ago Onset/Duration: Started weeks ago, Still Present Initially Headache Was: Moderate Currently Pain Is: Current Pain Scale(0-10)= - 9 Timing: Constant, Weeks Character: Sharp Location of Headache: Temporal - right, Occipital - right Aggravating Factor: Position Change, Bright Lights Allevating Factors: Nothing Associated Signs And Symptoms: Neck Pain - shoots up into head, Visual Changes - Photophobia - Allergies/Home Medications Allergies/Adverse Reactions: Allergies Allergy/AdvReac Type Severity Reaction Status Date / Time No Known Allergies Allergy Verified 10/21/17 12:22 PMH/Surg Hx/FS Hx/Imm Hx Endocrine/Hematology History: Denies: Hx Diabetes, Hx Systemic Lupus Erythematosus, Hx Thyroid Disease Cardiovascular History: Denies: Hx Congestive Heart Failure, Hx Hypertension Respiratory History: Reports: Hx Asthma - MEDS NEEDED, Other Respiratory Problems/Disorders - SMOKER Denies: Hx Chronic Obstructive Pulmonary Disease (COPD) GI History: Reports: Hx Gastroesophageal Reflux Disease - WELL CONTROLLED PT STATES WITH MEDS, Hx Ulcer - gerd History: Reports: Other Problems/Disorders - Overactive bladder Denies: Hx Dialysis, Hx Renal Disease Musculoskeletal History: Reports: Hx Tendonitis - CARPAL TUNNEL SYNDROME LEFT Denies: Hx Rheumatoid Arthritis Sensory History: Reports: Hx Contacts or Glasses - reading glasses Denies: Hx Hearing Aid Opthamlomology History: Reports: Hx Contacts or Glasses - reading glasses Neurological History: Reports: Hx Migraine - MONTHLY Psychiatric History: Reports: Hx Anxiety - ON MED - Cancer History Cancer Type, Location and Year: SKIN CA. 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 CERVICAL CA lasar surgery -1994. tonsillectomy as a child. tubal ligation 2015. LEFT THUMB SURGERY 05/03. RIGHT CARPAL TUNNEL RELEASE-06/19/17 [facility] – [place]. 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 Negative: Vomiting, Nausea Positive: Arthralgia - neck Positive: Headache All Other Systems Reviewed And Are Negative: Yes Physical Exam - Summary Physical Exam Summary: Appearance: The patient is well-nourished in moderate distress and in acute pain. Skin: The skin is warm and dry and skin color reflects adequate perfusion. HEENT: The head is normocephalic and atraumatic. The pupils are equal and reactive. The conjunctivae are clear and without drainage. Nares are patent and without drainage. Mouth reveals moist mucous membranes and the throat is without erythema and exudate. The external ears are intact. The ear canals are patent and without drainage. The tympanic membranes are intact. Right occipital tenderness. No meningeal signs. Neck: The neck is supple with full range of motion and non-tender. There are no carotid bruits. There is no neck vein distension. Right paracervical spine tenderness. Respiratory: Chest is non-tender. Lungs are clear to auscultation and breath sounds are symmetrical and equal. Cardiovascular: Heart is regular rate and rhythm. There is no murmur or rub auscultated. There is no peripheral edema and pulses are symmetrical and equal. Abdomen: The abdomen is soft and non-tender. There are normal bowel sounds heard in all four quadrants and there is no organomegaly palpated. Musculoskeletal: There is no back tenderness noted. Extremities are non-tender with full range of motion. There is good capillary refill. There is no peripheral edema or calf tenderness elicited. Neurological: Patient is alert and oriented to person, place and time. The patient has symmetrical motor strength in all four extremities. Cranial nerves are grossly intact. Deep tendon reflexes are symmetrical and equal in all four extremities. Psychiatric: The patient has an appropriate affect and does not exhibit any anxiety or depression. Vital Signs On Initial Exam: Initial Vitals Temp Pulse Resp BP Pulse Ox 97.8 F 72 18 130/85 98 02/28/18 07:41 02/28/18 07:41 02/28/18 07:41 02/28/18 07:41 02/28/18 07:41 Diagnostics - Vital Signs Vital Signs Temp Pulse Resp BP Pulse Ox 02/28/18 07:41 97.8 F 72 18 130/85 98 - Laboratory Lab Results: Lab Results 02/28/18 02/28/18 Range/Units 09:02 09:02 WBC 8.7 (3.5-10.8) 10^3/ul RBC 5.07 (4.00-5.40) 10^6/ul Hgb 14.2 (12.0-16.0) g/dl Hct 43 (35-47) % MCV 84 (80-97) fL MCH 28 (27-31) pg MCHC 33 (31-36) g/dl RDW 13 (10.5-15) % Plt Count 303 (150-450) 10^3/ul MPV 7.3 L (7.4-10.4) um3 Neut % (Auto) 57.8 (38-83) % Lymph % (Auto) 32.9 (25-47) % [place] % (Auto) 7.1 H (0-7) % Eos % (Auto) 1.4 (0-6) % Baso % (Auto) 0.8 (0-2) % Absolute Neuts (auto) 5.0 (1.5-7.7) 10^3/ul Absolute Lymphs (auto) 2.9 (1.0-4.8) 10^3/ul Absolute Monos (auto) 0.6 (0-0.8) 10^3/ul Absolute Eos (auto) 0.1 (0-0.6) 10^3/ul Absolute Basos (auto) 0.1 (0-0.2) 10^3/ul Absolute Nucleated RBC 0 10^3/ul Nucleated RBC % 0.1 ESR 12 (0-14) mm/Hr Sodium 136 L (139-145) mmol/L Potassium 4.4 (3.5-5.0) mmol/L Chloride 108 (101-111) mmol/L Carbon Dioxide 22 (22-32) mmol/L Anion Gap 6 (2-11) mmol/L BUN 8 (6-24) mg/dL Creatinine 0.73 (0.51-0.95) mg/dL Est GFR ( Amer) 109.9 (>60) Est GFR (Non-Af Amer) 85.5 (>60) BUN/Creatinine Ratio 11.0 (8-20) Glucose 93 (70-100) mg/dL Calcium 9.2 (8.6-10.3) mg/dL Total Bilirubin 0.40 (0.2-1.0) mg/dL AST 15 (13-39) U/L ALT 14 (7-52) U/L Alkaline Phosphatase 64 (34-104) U/L Total Protein 6.7 (6.4-8.9) g/dL Albumin 4.1 (3.2-5.2) g/dL Globulin 2.6 (2-4) g/dL Albumin/Globulin Ratio 1.6 (1-3) Result Diagrams: 02/28/18 09:02 02/28/18 09:02 Lab Statement: Any lab studies that have been ordered have been reviewed, and results considered in the medical decision making process. - CT brain CT Interpretation: No Acute Changes CT Interpretation Completed By: Radiologist - No acute intracranial pathology. Dr. Martin has reviewed this report. Re-Evaluation - Re-Evaluation First Eval Re-Evaluation Time: 10:41 Change: Improved Comment: Discussed symptom improvement, pt feels better. Headache Course/Dx - Course Course Of Treatment: Ms. Jaramillo presented to the emergency department with the complaint that she's had a right-sided occipital and parietal headache constantly for a month. There are times when it is only a dull pain and there are times when it is a sharp shooting pain but there are also times when it is just a constant severe pain. She describes it as pounding at those times. She was tender over the origin of her occipital nerve as well as right paracervical areas. My impression was that this was an occipital neuralgia although it certainly could be migraine. I spoke with Dr. Du about the need for urgent nerve block or MRI and he felt that these could be obtained as an outpatient. Her workup was negative here and she got a lot of relief with a migraine cocktail of ketorolac, Benadryl and Reglan. - Diagnoses Provider Diagnoses: Occipital neuralgia Discharge - Sign-Out/Discharge Documenting (check all that apply): Discharge/Admit/Transfer - discharge - Discharge Plan Condition: Stable Disposition: HOME Prescriptions: Gabapentin CAP(*) [Neurontin 100 mg CAP(*)] 100 mg PO TID #30 cap Gabapentin CAP(*) [Neurontin 100 mg CAP(*)] 100 mg PO TID #30 cap Patient Education Materials: Acute Headache (ED) Referrals: Ethan Morris MD [Primary Care Provider] - Additional Instructions: RETURN TO EMERGENCY DEPARTMENT FOR ANY CHANGING OR WORSENING SYMPTOMS. - Billing Disposition and Condition Condition: STABLE Disposition: Home The documentation as recorded by the Briana li Simon accurately reflects the service I personally performed and the decisions made by me, Gaudencio Martin MD.
== END 2018-02-28 11:20 | disposition home or self-care (01) ==
LOC: ED 07:34
DX: M54.81 Occipital neuralgia (principal); M54.2 Cervicalgia; F17.210 Nicotine dependence, cigarettes, uncomplicated; R51 Headache
CPT/HCPCS: 36415; 70450; 80053; 85025; 85652; 96374; 96375; 99283; A9270-GY; J1885; J2765